=== PATIENT | female | born 1950 | race Two or more races ===

== ENCOUNTER 2018-04-17 15:46 | Inpatient (IN) | payer MEDICARE ==
[~2018-04-17] VITALS: Ht 157.5 cm; Wt 63.5 kg
[2018-04-17] MEDS ORDERED: IV NS 0.9% 1,000 ML BAG IV ONE ×2 (16:00→18:00)
--- NOTE | 2018-04-17 16:06 | NUR ---
LAB AT BEDSIDE FOR BLOOD DRAW.
--- NOTE | 2018-04-17 16:10 | NUR ---
ALLYN STEVE RA FOR GENERALIZED WEAKNESS. SECONDARY TO TACHCARDIA. RA STATES HYPOGLYCEMIA SOCK AND STOCKING IRONER. NO S/S SOB. PT AA/OX1. FAMILY MEMBER STATES, "HER WEAKNESS AND MENTAL STATE HAS BEEN LIKE THIS FOR A WEEK AND GRADUALLY GETTING WORSE, SHE HAS NOT BEEN ABLE TO SPEAK SINCE THEN." ALL OTHER VSS. AWAITING MD MCKEE.
[2018-04-17 16:19] LABS: BASOPHILS % (AUTO) 0.1 % (0.0-2.0); EOSINOPHILS % (AUTO) 0.2 % (0.0-6.0); HEMATOCRIT 34 % (33-45); HEMOGLOBIN 11.5 g/dL (11.5-14.8); LYMPHOCYTES # (AUTO) 1.4 /CMM (0.8-4.8); LYMPHOCYTES % (AUTO) 4.4 % (20.0-44.0); MEAN CORPUSCULAR HEMOGLOBIN 28 PG (26.0-33.0); MEAN CORPUSCULAR HGB CONC 34 g/dl (31.0-36.0); MEAN CORPUSCULAR VOLUME 82 fL (82-100); MONOCYTES # (AUTO) 1.2 /CMM (0.1-1.30); MONOCYTES % (AUTO) 3.7 % (2.0-12.0); NEUTROPHILS # (AUTO) 28.8 /CMM (1.8-8.9); NEUTROPHILS % (AUTO) 91.6 % (43.0-81.0); PLATELET COUNT (AUTO) 408 /CMM (150-450); RED BLOOD CELL COUNT(AUTO) 4.09 MIL/uL (4.0-5.2)
--- NOTE | 2018-04-17 16:24 | NUR ---
WBC 31.5
[2018-04-17] MEDS ORDERED: BUPR300T52 PO (16:25)
[2018-04-17] MEDS ORDERED: INSU100V3 SQ (16:25)
[2018-04-17] MEDS ORDERED: FOLI0.8T2 PO (16:25)
[2018-04-17] MEDS ORDERED: CHOL100044 PO (16:25)
[2018-04-17] MEDS ORDERED: AMLO5TAB4 PO (16:25)
[2018-04-17] MEDS ORDERED: GLIP5TAB3 PO (16:25)
[2018-04-17] MEDS ORDERED: ARIP5TAB10 PO (16:25)
[2018-04-17] MEDS ORDERED: ATOR40TA PO (16:25)
[2018-04-17] MEDS ORDERED: GABA-532 PO (16:25)
[2018-04-17] MEDS ORDERED: ACET-868 PO (16:25)
[2018-04-17] MEDS ORDERED: BLOO-668 IN (16:25)
[2018-04-17] MEDS ORDERED: ONDA4TAB5 PO (16:25)
[2018-04-17 16:26] LABS: WHITE BLOOD COUNT (AUTO) 31.5 K/uL (4.3-11.0)
[2018-04-17 16:28] LABS: CALCIUM, SERUM 8.6 mg/dL (8.5-10.1); CARBON DIOXIDE 19 mmol/L (21-32); CHLORIDE 98 mmol/L (98-107); CREATININE 4.9 mg/dL (0.6-1.3); GLUCOSE 215 mg/dL (74-106); SODIUM SERUM 131 mmol/L (136-145); UREA NITROGEN, BLOOD 68 mg/dL (7-18)
[2018-04-17 16:35] LABS: TROPONIN I < 0.017 ng/mL (0.00-0.056)
[2018-04-17 16:36] LABS: ALANINE AMINOTRANSFERASE 24 U/L (12-78); ALBUMIN 2.6 g/dL (3.4-5.0); ALKALINE PHOSPHATASE 206 U/L (46-116); ASPARTATE AMINOTRANSFERASE 35 U/L (15-37); BILIRUBIN,DIRECT 0.1 mg/dL (0.0-0.2); BILIRUBIN,TOTAL 0.3 mg/dL (0.2-1.0); INR 0.99 (0.85-1.15); TOTAL PROTEIN, SERUM 8.8 g/dL (6.4-8.2)
[2018-04-17 17:28] LABS: APPEARANCE,URINE Clear (CLEAR); BILIRUBIN,URINE Negative (NEGATIVE); BLOOD, URINE Trace-lysed Ery/uL (NEGATIVE); COLOR,URINE Yellow (YELLOW); KETONES,URINE Negative (NEGATIVE); LEUKOCYTE ESTERASE ,URINE Moderate (NEGATIVE); NITRITE, URINE Negative (NEGATIVE); PROTEIN,URINE 100 mg/dl (NEGATIVE); UGLUCOSE Negative (NEGATIVE); UROBILINOGEN,URINE 0.2 EU/dL (0.2)
[2018-04-17 17:41] LABS: BACTERIA,URINE 1+ /HPF (None Seen); RBC,URINE 0-2 /HPF (0-2); SQUAMOUS EPITHELIAL CELL,UR Few /HPF (None Seen)
[2018-04-17] MEDS ORDERED: CEFTRIAXONE 1GM BAG (ER ONLY) 50 ML IV ONE (18:00)
[2018-04-17] MEDS ORDERED: AZITHROMYCIN 500 MG in IV D5W 250 ML IV ONE (18:00)
[2018-04-17] MEDS ORDERED: VANCOMYCIN 1 GM in IV D5W 250 ML IV ONE (18:00)
[2018-04-17] MEDS ORDERED: CEFTRIAXONE 1 G VIAL ONE (18:13)
[2018-04-17 18:59] LABS: BAND % (MANUAL) 5 % (0.0-5.0); LYMPHOCYTES % (MANUAL) 15 % (16-48); MONOCYTES % (MANUAL) 11 % (0-11.0); NEUTROPHILS % (MANUAL) 69 (42-76)
--- NOTE | 2018-04-17 19:40 | NUR ---
REPORT GIVEN TO DION JACKSON FOR CARMEN
[2018-04-17 20:00] VITALS: BP 108/49
--- NOTE | 2018-04-17 20:00 | NUR ---
REAM CUTTER NOTES RECEIVE PT FROM [facility] ADMIT TO TELEMETRY AT 1935 PT IS LAO SPEAKING ONLY A/O X 1 CONFUSED, TOLERATING ROOM AIR 98% KEPT CLEAN AND DRY AND COMFORT. NURSING CARE RENDERED. HEAD TO TOE ASSESSMENT IS DONE. SAFETY MEASURES IMPLEMENTED. CALL LIGHT WITHIN EASY TO REACH. WILL MONITOR
[2018-04-17] MEDS ORDERED: IV NS 0.9% 1,000 ML IV PRN (20:58)
[2018-04-17] MEDS ORDERED: ACETAMINOPHEN 325 MG TABLET PO PRN (21:00)
[2018-04-17] MEDS ORDERED: VANCOMYCIN 1 GM in IV NS 0.9% 250 ML IV SCH (21:00)
[2018-04-17] MEDS ORDERED: ONDANSETRON HCL/PF 4 MG/2 ML VIAL IVP PRN (21:00)
[2018-04-17] MEDS ORDERED: DEXTROSE 50%-WATER 50 ML DISP.SYRIN IV PRN (21:00)
[2018-04-17] MEDS: BLOOD SUGAR DIAGNOSTIC 1 EACH STRIP IN SCH (21:34)
[2018-04-17] MEDS: ATORVASTATIN 40 MG TABLET PO SCH (21:40)
[2018-04-17] MEDS: INSULIN REGULAR, HUMAN 100 UNIT/ML 3 ML VIAL SQ PRN (21:49)
[2018-04-17] MEDS: HYDROCODONE/APAP 5/325MG 1 EACH TABLET PO PRN (23:12)
[2018-04-18] VITALS: BP_SYST 172; BP_SYST 99; BP_DIAS 46; BP_DIAS 78
--- NOTE | 2018-04-18 01:15 | NUR ---
SEEN BY DR. AGUSTIN DE LA TORRE AT BEDSIDE RECEIVED VERBAL ORDERS INSERT PANTOJA TO MONITOR URINE OUTPUT AND CHANGE IVF TO D5NS AT 100C/HR D/C NS AT 100ML/HR READ BACK AND VERIFIED ORDERS NOTED AND CARRIED OUT
--- NOTE | 2018-04-18 01:30 | NUR ---
INSERTED PANTOJA CATH 16FR. + URINE FLOW TOLERATED PROCEDURE WELL. GOOD F/C CARE
[2018-04-18] MEDS: IV D5/ 0.9% NACL 1,000 ML IV PRN ×2 (01:34→21:53)
[2018-04-18 04:00] VITALS: BP 104/51
[2018-04-18] MEDS: BLOOD SUGAR DIAGNOSTIC 1 EACH STRIP IN SCH ×4 (05:51→22:28)
[2018-04-18] MEDS: INSULIN REGULAR, HUMAN 100 UNIT/ML 3 ML VIAL SQ PRN ×2 (05:51→13:18)
--- NOTE | 2018-04-18 06:24 | NUR ---
MS RN CLOSING NOTES PT COMFORTABLY ASLEEP AND EASILY AWAKEN, STABLE CONDITION. RESPIRATION EVEN AND UNLABORED. 02 SAT 94%R.A, KEPT CLEAN AND DRY AND COMFORTABLE, ALL NURSING CARE RENDERED. NEEDS ATTENDED AND ANTICIPATED,NOT IN DISTRESS NO FACIAL GRIMACING NOTED. GOOD F/C CARE, FC DRAINING YELLOW VIA GRAVITY WITH NO SEDIMENTS NO HEMATURIA NO CLOUDINESS. ASSISTED REPOSITION EVERY 2 HOURS. ON LOW BED AT ALL TIMES TO ENSURE SAFETY. SAFE HAZARD FREE ENVIRONMENT PROVIDED. CALL LIGHT WITHIN EASY TO REACH. WILL ENDORSE NEXT SHIFT CONTINUITY OF CARE.
[2018-04-18 08:00] VITALS: BP 114/62
--- NOTE | 2018-04-18 08:00 | NUR ---
RN NOTES RECEIVED PATIENT IN THE BED , A/O X1 CONFUSED, DELUSIONAL, TRYING TO PULL F/C. PATIENT HAS NO ACUTE RESPIRATORY DISTRESS. V/S STABLE, SCHEDULED MEDICATION ADMINISTERED, ASSIST EATING. NEEDS ATTENDED AND ANTICIPATED, IV ACCESS ON RIGHT F/A INFUSING D51/2 NS AT 100 ML/HR INTACT. BED ALLARM ON, SIDE RAILS UP, PATIENT TRYING TO CLIME OUT OF BED. CALL [facility] TO REACH. SAFETY PRECAUTION MAINTAINED ALL THE TIME.
[2018-04-18] MEDS ORDERED: VANCOMYCIN 1 GM in IV NS 0.9% 250 ML IV SCH ×2 (08:04→18:00)
[2018-04-18] MEDS ORDERED: FEE PK DOSING 1 MIN EA MC ONE (08:05)
[2018-04-18] MEDS: BUPROPION XL 150 MG TAB.ER.24 PO SCH (08:16)
[2018-04-18] MEDS: PANTOPRAZOLE 40 MG TABLET.DR PO SCH (08:16)
[2018-04-18] MEDS: ARIPIPRAZOLE 5 MG TABLET PO SCH (08:17)
[2018-04-18] MEDS: GABAPENTIN 300 MG CAPSULE PO SCH (08:17)
[2018-04-18] MEDS: PIPERACILLIN /TAZOBACTAM 2.25 G in IV NS 0.9% 50 ML IV SCH ×2 (08:18→17:25)
[2018-04-18] MEDS ORDERED: PIPERACILLIN /TAZOBACTAM 2.25 G in IV NS 0.9% 50 ML IV SCH (09:00)
--- NOTE | 2018-04-18 09:00 | NUR ---
RN NOTES D/C TELE TO THE MED/SURGE.
[2018-04-18 10:04] LABS: CALCIUM, SERUM 8.1 mg/dL (8.5-10.1); CREATININE 4.2 mg/dL (0.6-1.3); POTASSIUM 3.7 mmol/L (3.5-5.1)
[2018-04-18 10:08] LABS: MAGNESIUM 2.1 mg/dL (1.8-2.4); PHOSPHORUS 4.3 mg/dL (2.5-4.9)
--- NOTE | 2018-04-18 13:04 | NUR ---
RN NOTES BS-273 MG/DL COVERAGE GIVEN, PATIENT CONFUSED, DELUSIONAL, F/C DRAIN LIGHT YELLOW OUTPUT, V/S STABLE, NEEDS ATTENDED AND ANTICIPATED. CALL LIGHT WITHIN TO REACH, FAMILY NEXT TO THE BED, CONTINUED MONITORING.
[2018-04-18 15:44] LABS: BASOPHILS # (AUTO) 0.1 /CMM (0.0-0.2); BASOPHILS % (AUTO) 0.2 % (0.0-2.0); EOSINOPHILS % (AUTO) 1.8 % (0.0-6.0); HEMATOCRIT 27 % (33-45); HEMOGLOBIN 8.5 g/dL (11.5-14.8); LYMPHOCYTES # (AUTO) 2.8 /CMM (0.8-4.8); LYMPHOCYTES % (AUTO) 10.7 % (20.0-44.0); MEAN CORPUSCULAR HEMOGLOBIN 27 PG (26.0-33.0); MEAN CORPUSCULAR HGB CONC 32 g/dl (31.0-36.0); MEAN CORPUSCULAR VOLUME 85 fL (82-100); MONOCYTES # (AUTO) 0.9 /CMM (0.1-1.30); MONOCYTES % (AUTO) 3.6 % (2.0-12.0); NEUTROPHILS # (AUTO) 21.5 /CMM (1.8-8.9); NEUTROPHILS % (AUTO) 83.7 % (43.0-81.0); PLATELET COUNT (AUTO) 339 /CMM (150-450); RDW COEFFICIENT OF VARIATION 16.5 (11.5-15.0); RED BLOOD CELL COUNT(AUTO) 3.13 MIL/uL (4.0-5.2); WHITE BLOOD COUNT (AUTO) 25.7 K/uL (4.3-11.0)
[2018-04-18 16:13] VITALS: BP 128/66
[2018-04-18 16:27] LABS: LYMPHOCYTES % (MANUAL) 6 % (16-48); MONOCYTES % (MANUAL) 11 % (0-11.0); NEUTROPHILS % (MANUAL) 83 (42-76)
--- NOTE | 2018-04-18 17:25 | NUR ---
RN NOTES BS-73 MG/DL, NO COVERAGE GIVEN, SCHEDULED MEDICATION ADMINISTERED, V/S STABLE. ASSIST TURN AND REPOSTION Q 2 HR. F/C DRAIN LIGHT YELLOW OUTPUT, NEEDS ATTENDED AND ANTICIPATED, CALL LIGHT WITHIN TO REACH, BED ALARM ON, CONTINUED MONITORING FOR SAFETY ALL THE TIME.
--- NOTE | 2018-04-18 18:30 | NUR ---
RN NOTES PATIENT CONFUSED, NO ACUTE RESPIRATORY DISTRESS, V/S STABLE. ASSIST TURN AND REPOSTION Q 2 HR. CALL LIGHT WITHIN TO REACH, BED ALARM ON. F/C DRAIN LIGHT YELLOW OUTPUT. ENDORSED ONCOMING NURSE FOR PLAN OF CARE.
--- NOTE | 2018-04-18 19:20 | NUR ---
MS RN NOTES Report received. Patient received in bed, awake, alertx1 to self only (japanese speaking). Have episodes of confusion. Elevated BUN and creat: per nephrology (pharm notes), HD is not indicated at this time. serum creat is trending down. Continue on ATB therapy. Risk for fall. IV on right forearm 18g noted. with D5NS @100ml/hr, tolerating well. On Renal standard diet. Safety measures in place. Will continue to monitor and assess patient
[2018-04-18 20:04] VITALS: BP 132/87
[2018-04-18] MEDS: ATORVASTATIN 40 MG TABLET PO SCH (21:45)
[2018-04-19] MEDS: PIPERACILLIN /TAZOBACTAM 2.25 G in IV NS 0.9% 50 ML IV SCH ×2 (00:56→11:10)
[2018-04-19 01:12] LABS: THYROID STIMULATING HORMONE 0.979 uIU/mL (0.358-3.74)
--- NOTE | 2018-04-19 01:15 | NUR ---
MS RN NOTES Patient remained awake, restless. Continue to re-orient patient and monitor patient to prevent from pulling abarca cath and IV.
[2018-04-19] MEDS: Z GUARD REMEDY 2 OZ OINT TP PRN (01:47)
--- NOTE | 2018-04-19 03:39 | NUR ---
MS RN NOTES Noted patient to be awake and talking to herself while playing with sleeve protector that was placed on right arm to prevent from pulling out IV. Reoriented and reminded patient not to touch the sleeve. Safety measures in place. Will continue to monitor patient
[2018-04-19] MEDS: BLOOD SUGAR DIAGNOSTIC 1 EACH STRIP IN SCH ×4 (07:15→22:07)
--- NOTE | 2018-04-19 07:15 | NUR ---
MS OPENING NOTE PT IS A&O X1, CONFUSED, IN BED, AWAKE. ALL FOUR SIDE RAILS UP. NO IV ACCESS CURRENTLY WILL INSERT.IN SOB, NOT IN DISTRESS, ON ROOM AIR. WILL CONTINUE TO MONITOR PT.
--- NOTE | 2018-04-19 07:20 | NUR ---
MS RN CLOSING NOTES Patient remained in bed, awake throughout the shift. Not in any type of distress. On antibiotic therapy, tolerating well. Noted IV line pulled out, asked BRUSH FINISHER, and BRUSH FINISHER just informed me that she was looking for me to inform me that patient pulled out her IV. ID consult and plan for renal work up. AM labs. BS: 101//no coverage. Endorsed to oncoming shift nurse. Safety measures in place. Bed in lowest position with bed alarm on and call light within reach.
[2018-04-19 08:00] VITALS: BP_SYST 109; BP_SYST 116; BP_DIAS 44; BP_DIAS 71
[2018-04-19] MEDS: ARIPIPRAZOLE 5 MG TABLET PO SCH (08:30)
[2018-04-19] MEDS: BUPROPION XL 150 MG TAB.ER.24 PO SCH (08:30)
[2018-04-19] MEDS: PANTOPRAZOLE 40 MG TABLET.DR PO SCH (08:30)
[2018-04-19] MEDS: GABAPENTIN 300 MG CAPSULE PO SCH (08:30)
[2018-04-19] MEDS: INSULIN REGULAR, HUMAN 100 UNIT/ML 3 ML VIAL SQ PRN ×3 (12:27→22:51)
[2018-04-19] MEDS: MEROPENEM 500 MG in IV NS 0.9% 50 ML IV SCH (15:11)
[2018-04-19 16:00] VITALS: BP 126/71
[2018-04-19] MEDS ORDERED: VANCOMYCIN 1 GM in IV NS 0.9% 250 ML IV SCH (16:00)
[2018-04-19 16:15] LABS: BASOPHILS % (AUTO) 0.1 % (0.0-2.0); EOSINOPHILS % (AUTO) 1.3 % (0.0-6.0); HEMATOCRIT 28 % (33-45); HEMOGLOBIN 8.9 g/dL (11.5-14.8); LYMPHOCYTES # (AUTO) 2.4 /CMM (0.8-4.8); LYMPHOCYTES % (AUTO) 9.5 % (20.0-44.0); MEAN CORPUSCULAR HEMOGLOBIN 27 PG (26.0-33.0); MEAN CORPUSCULAR HGB CONC 31 g/dl (31.0-36.0); MEAN CORPUSCULAR VOLUME 86 fL (82-100); MONOCYTES # (AUTO) 1.5 /CMM (0.1-1.30); MONOCYTES % (AUTO) 6.1 % (2.0-12.0); NEUTROPHILS # (AUTO) 20.8 /CMM (1.8-8.9); PLATELET COUNT (AUTO) 379 /CMM (150-450); RDW COEFFICIENT OF VARIATION 16.6 (11.5-15.0); RED BLOOD CELL COUNT(AUTO) 3.32 MIL/uL (4.0-5.2); WHITE BLOOD COUNT (AUTO) 25.1 K/uL (4.3-11.0)
[2018-04-19 16:22] LABS: CREATININE 3.9 mg/dL (0.6-1.3); MAGNESIUM 1.9 mg/dL (1.8-2.4); PHOSPHORUS 3.4 mg/dL (2.5-4.9); POTASSIUM 3.1 mmol/L (3.5-5.1)
[2018-04-19] MEDS: LACTOBACILLUS RHAMNOSUS GG 1 EACH CAP.SPRINK PO SCH (16:44)
[2018-04-19 17:37] LABS: LYMPHOCYTES % (MANUAL) 13 % (16-48); MONOCYTES % (MANUAL) 2 % (0-11.0); NEUTROPHILS % (MANUAL) 85 (42-76)
[2018-04-19] MEDS: HYDROCODONE/APAP 5/325MG 1 EACH TABLET PO PRN (17:46)
[2018-04-19] MEDS ORDERED: POTASSIUM CHLORIDE 20 MEQ TAB.PRT.SR PO ONE (19:00)
--- NOTE | 2018-04-19 19:10 | NUR ---
ms rn closing notes All needs provided, attended, and anticipated. Patient in stable condition at this time. Endorsed to next shift RN to continue care. Call light with in patient reach. Sitter at bedside for constant monitoring.
--- NOTE | 2018-04-19 19:13 | NUR ---
MS RN NOTES Report received at bedside. Patient received in bed, awake, alertx1 to self only (albanian speaking). On contact isolation for urine ESBL. On one-on-one sitter d/t confusion, combativeness, restlessness and disturbance in care. Potassium replaced per endorsement. serum creat and BUN continues to trend down. Continue on ATB therapy. Risk for fall. IV on LAC noted with D5NS @100ml/hr, tolerating well. On Renal standard diet. Aspiration precaution. Safety measures in place. Will continue to monitor and assess patient
[2018-04-19 20:00] VITALS: BP 134/75
[2018-04-19] MEDS: ATORVASTATIN 40 MG TABLET PO SCH (22:07)
[2018-04-20] MEDS: IV D5/ 0.9% NACL 1,000 ML IV PRN (00:19)
[2018-04-20] MEDS: MEROPENEM 500 MG in IV NS 0.9% 50 ML IV SCH ×2 (02:19→15:23)
--- NOTE | 2018-04-20 06:56 | NUR ---
MS RN CLOSING NOTES Patient remained in bed, asleep, easily arousable. alertx1 to self only (israeli speaking). Remained on contact isolation for urine ESBL. Continue with one-on-one sitter d/t confusion, combativeness, restlessness and interference in care. Potassium replaced 04/19 AM shift. serum creat and BUN continues to trend down. Continue on ATB therapy. Risk for fall. IV on LAC #18g: patent and intact with D5NS @100ml/hr, tolerating well. On Renal standard diet. Aspiration precaution. Bed in lowest position with bed alarm on and call light within reach. BS: 149. 2 units coverage. Will endorse to oncoming shift nurse
[2018-04-20] MEDS: BLOOD SUGAR DIAGNOSTIC 1 EACH STRIP IN SCH ×4 (07:00→22:12)
[2018-04-20 07:11] LABS: EOSINOPHILS % (AUTO) 1.2 % (0.0-6.0); HEMATOCRIT 30 % (33-45); HEMOGLOBIN 9.6 g/dL (11.5-14.8); LYMPHOCYTES # (AUTO) 2.2 /CMM (0.8-4.8); LYMPHOCYTES % (AUTO) 8.8 % (20.0-44.0); MEAN CORPUSCULAR HEMOGLOBIN 28 PG (26.0-33.0); MEAN CORPUSCULAR HGB CONC 33 g/dl (31.0-36.0); MEAN CORPUSCULAR VOLUME 86 fL (82-100); MONOCYTES # (AUTO) 1.5 /CMM (0.1-1.30); MONOCYTES % (AUTO) 5.8 % (2.0-12.0); NEUTROPHILS # (AUTO) 21.4 /CMM (1.8-8.9); NEUTROPHILS % (AUTO) 84.2 % (43.0-81.0); PLATELET COUNT (AUTO) 361 /CMM (150-450); RDW COEFFICIENT OF VARIATION 16.9 (11.5-15.0); RED BLOOD CELL COUNT(AUTO) 3.47 MIL/uL (4.0-5.2); WHITE BLOOD COUNT (AUTO) 25.4 K/uL (4.3-11.0)
[2018-04-20 07:20] LABS: CALCIUM, SERUM 8.3 mg/dL (8.5-10.1); CREATININE 3.8 mg/dL (0.6-1.3); MAGNESIUM 1.8 mg/dL (1.8-2.4); PHOSPHORUS 3.1 mg/dL (2.5-4.9); POTASSIUM 3.5 mmol/L (3.5-5.1)
--- NOTE | 2018-04-20 07:38 | NUR ---
MS RN OPENING NOTE RECEIVED BEDSIDE SBAR REPORT ON THE PATIENT. PATIENT IS AWAKE, ORIENTED TO SELF, CONFUSED, EASILY AGITATED, ALGERIAN SPEAKING ONLY. SITTER AT THE BEDSIDE. CONTACT ISOLATION IN PLACE FOR ESBL URINE. AWAKE AND RESPONSIVE IN BED. BED IS LOCKED IN LOWEST POSITION, SIDE RAILS UP X3, BED ALARM IS ON. CALL LIGHT WITHIN REACH. EDUCATED PATIENT TO CALL FOR ASSISTANCE USING THE CALL LIGHT. DENIES PAIN AT THIS TIME. CHEST RISING EQUALLY, BILATERALLY. ALL NEEDS ARE MET. WILL CONTINUE TO ASSES/MONITOR THROUGHOUT THE SHIFT.
[2018-04-20 08:00] VITALS: BP_SYST 132; BP_SYST 145; BP_DIAS 64; BP_DIAS 68
[2018-04-20] MEDS: ARIPIPRAZOLE 5 MG TABLET PO SCH (08:37)
[2018-04-20] MEDS: BUPROPION XL 150 MG TAB.ER.24 PO SCH (08:37)
[2018-04-20] MEDS: LACTOBACILLUS RHAMNOSUS GG 1 EACH CAP.SPRINK PO SCH ×2 (08:38→16:24)
[2018-04-20] MEDS: GABAPENTIN 300 MG CAPSULE PO SCH (08:38)
[2018-04-20] MEDS: PANTOPRAZOLE 40 MG TABLET.DR PO SCH (08:39)
[2018-04-20] MEDS: INSULIN REGULAR, HUMAN 100 UNIT/ML 3 ML VIAL SQ PRN (12:49)
[2018-04-20 16:00] VITALS: BP 127/53
--- NOTE | 2018-04-20 18:57 | NUR ---
MS RN CLOSING NOTE PATIENT IS AWAKE, ORIENTED TO SELF, CONFUSED, EASILY AGITATED, FRISIAN SPEAKING ONLY. SITTER AT THE BEDSIDE. CONTACT ISOLATION IN PLACE FOR ESBL URINE. AWAKE AND RESPONSIVE IN BED. BED IS LOCKED IN LOWEST POSITION, SIDE RAILS UP X3, BED ALARM IS ON. CALL LIGHT WITHIN REACH. EDUCATED PATIENT TO CALL FOR ASSISTANCE USING THE CALL LIGHT. DENIES PAIN AT THIS TIME. CHEST RISING EQUALLY, BILATERALLY. ALL NEEDS ARE MET. PATIENT REPOSITIONED EVERY TWO HOURS WHILE MAINTAINING THE FUNCTIONAL ALIGNMENT OF THE LIMBS. WILL ENDORSE TO THE TIEDOWN OPERATOR NURSE FOR CARMEN.
--- NOTE | 2018-04-20 19:47 | NUR ---
MS PATIENT SAFETY ATTENDANT INITIAL NOTES RECEIVED PT IN BED AWAKE AND CONFUSED, RE-ORIENTED WHERE SHE AT , URDU SPEAKING NO SIGNS OF ANY ACUTE DISTRESS NOTED. DENIES ANY PAIN AT THIS TIME. SON AT THE BEDSIDE. SKIN WARM AND DRY TO TOUCH. IVF STILL INFUSING ON HER LEFT AC D5NS AT 100ML/HR COVERED WITH ARM SLEEVES TO PREVENT PT TO PULLED OUT. ON ISOLATION PRECAUTION ESBL URINE IMPLEMENTED AND OBSERVED. KEPT HIM COMFORTABLE AT ALL TIMES. PANTOJA TO GRAVITY WITH CLEAR YELLOW OUTPUT NOTED. CLOSELY MONITORING FOR PT SAFETY.
[2018-04-20 19:51] VITALS: BP 135/65
[2018-04-20] MEDS: ATORVASTATIN 40 MG TABLET PO SCH (22:11)
[2018-04-20] MEDS: HYDROCODONE/APAP 5/325MG 1 EACH TABLET PO PRN (22:12)
--- NOTE | 2018-04-20 22:16 | NUR ---
MS MACHINE STONECUTTER NOTES BLOOD SUGAR CHECKED DONE 92 , NO INSULIN COVERAGE DUE AT THIS TIME. NO SIGNS OF HYPO GLYCEMIA NOTED. ROUTINE MEDS GIVEN WELL HER PAIN MEDS AND TOLERATED WELL BY THE PATIENT. NO ASPIRATION NOTED . KEPT HER WARM AND COMFORTABLE AT ALL TIMES. WILL CONTINUE MONITORING.
--- NOTE | 2018-04-21 | NUR ---
FOOT MITER OPERATOR NOTES PT SLEEPING COMFORTABLY IN BED WITHOUT ANY ACUTE DISTRESS NOTED. IVF STILL INFUSING. KEPT HER WARM AND COMFORTABLE AT ALL TIMES. WILL CONTINUE MONITORING.
[2018-04-21] MEDS: MEROPENEM 500 MG in IV NS 0.9% 50 ML IV SCH ×2 (03:25→15:33)
--- NOTE | 2018-04-21 06:17 | NUR ---
MS ISHMAEL NOTES PT WOKE UP , NO SIGNS OF ANY DISCOMFORT NOTED. SPONGE BATH RENDERED WELL SKIN TREATMENT. REPOSITION HER FOR COMFORT. WILL CONTINUE MONITORING.
[2018-04-21] MEDS: IV D5/ 0.9% NACL 1,000 ML IV PRN ×2 (06:24→21:06)
[2018-04-21] MEDS: BLOOD SUGAR DIAGNOSTIC 1 EACH STRIP IN SCH ×4 (07:01→21:06)
--- NOTE | 2018-04-21 07:03 | NUR ---
MS BUS DRIVER/MONITOR CLOSING NOTES PT BACK TO REST AFTER MORNING CARE DONE, BREATHING EVEN AND NON-LABORED NOT IN ANY DISCOMFORT OR ANY ACUTE DISTRESS NOTED. STABLE QASIM THE NIGHT AND SLEPT WELL AFTER NORCO GIVEN . ALL DUE MEDS GIVEN AND ALL NEEDS MET. IVF D5NS AT 100ML/HR STILL INFUSING ON HER LEFT AC PATENT AND INTACT. PANTOJA DRAINING WELL . KEPT HER WARM AND COMFORTABLE AT ALL TIMES. SIDE RAILS X3 UP AND BED IN LOW AND LOCK IN POSITION. SITTER AT THE BEDSIDE. ENDORSE TO AM NURSE FOR CONTINUITY OF CARE.
--- NOTE | 2018-04-21 07:49 | NUR ---
RN OPENING NOTES RECEIVED PT. PT STABLE AND RESTING IN BED. A/OX1, PRIMARILY ENGLISH SPEAKING, PT IS CONFUSED AND AGITATED. 1:1 SITTER AT BEDSIDE. CONTACT PRECAUTIONS IN PLACE. FC PATENT, IN PLACE. IV ACCESS LOCATED ON LAC 18G INFUSING D5NS AT 100 ML/HR. SAFETY MEASURES IN PLACE, CALL LIGHT WITHIN REACH. WILL CONTINUE TO MONITOR.
[2018-04-21 07:53] LABS: BASOPHILS % (AUTO) 0.1 % (0.0-2.0); HEMATOCRIT 30 % (33-45); HEMOGLOBIN 9.5 g/dL (11.5-14.8); LYMPHOCYTES # (AUTO) 3.6 /CMM (0.8-4.8); LYMPHOCYTES % (AUTO) 15.5 % (20.0-44.0); MEAN CORPUSCULAR HEMOGLOBIN 28 PG (26.0-33.0); MEAN CORPUSCULAR HGB CONC 32 g/dl (31.0-36.0); MEAN CORPUSCULAR VOLUME 87 fL (82-100); MONOCYTES # (AUTO) 1.4 /CMM (0.1-1.30); MONOCYTES % (AUTO) 5.8 % (2.0-12.0); NEUTROPHILS # (AUTO) 17.9 /CMM (1.8-8.9); NEUTROPHILS % (AUTO) 76.6 % (43.0-81.0); PLATELET COUNT (AUTO) 398 /CMM (150-450); RDW COEFFICIENT OF VARIATION 16.5 (11.5-15.0); RED BLOOD CELL COUNT(AUTO) 3.43 MIL/uL (4.0-5.2); WHITE BLOOD COUNT (AUTO) 23.4 K/uL (4.3-11.0)
[2018-04-21 08:00] VITALS: BP 132/69
[2018-04-21 08:13] LABS: CALCIUM, SERUM 8.4 mg/dL (8.5-10.1); CREATININE 3.6 mg/dL (0.6-1.3); MAGNESIUM 1.7 mg/dL (1.8-2.4); PHOSPHORUS 3.2 mg/dL (2.5-4.9); POTASSIUM 3.3 mmol/L (3.5-5.1)
[2018-04-21] MEDS: PANTOPRAZOLE 40 MG TABLET.DR PO SCH (08:17)
[2018-04-21] MEDS: ARIPIPRAZOLE 5 MG TABLET PO SCH (08:18)
[2018-04-21] MEDS: BUPROPION XL 150 MG TAB.ER.24 PO SCH (08:18)
[2018-04-21] MEDS: LACTOBACILLUS RHAMNOSUS GG 1 EACH CAP.SPRINK PO SCH ×2 (08:18→17:41)
[2018-04-21] MEDS: GABAPENTIN 300 MG CAPSULE PO SCH (08:18)
[2018-04-21] MEDS ORDERED: POTASSIUM CHLORIDE 20 MEQ TAB.PRT.SR PO ONE (10:30)
[2018-04-21] MEDS: Magnesium 1GM/D5W 100ML PREMIX 100 ML IV SCH ×2 (10:53→12:13)
[2018-04-21] MEDS: VANCOMYCIN 0.75 GM in IV D5W 250 ML IV SCH (12:10)
[2018-04-21] MEDS: INSULIN REGULAR, HUMAN 100 UNIT/ML 3 ML VIAL SQ PRN ×3 (12:11→21:16)
[2018-04-21 16:00] VITALS: BP 136/75
--- NOTE | 2018-04-21 18:39 | NUR ---
RN CLOSING NOTES PT IN BED RESTING, FAMILY AT BEDSIDE. NO S/S OF RESP DISTRESS OR SOB. NO C/O PAIN AT THIS TIME. PT REMAINS NON-COMPLIANT WITH THERAPIES AND SOME TREATMENTS, ALTHOUGH PRESENCE OF FAMILY ASSISTS IN OBTAINING PT CONSENT. ALL PT NEEDS ANTICIPATED AND MET, SAFETY MEASURES IN PLACE, CALL LIGHT WITHIN REACH. WILL ENDORSE TO MENTAL TESTER FOR CARMEN.
--- NOTE | 2018-04-21 19:24 | NUR ---
MS RN OPENING NOTE RECEIVE PATIENT AWAKE IN BED, A/O X1, SLOVAK SPEAKING CONFUSED, NO C/O OF PAIN. NO SOB OR DISTRESS NOTED, CALL LIGHT WITHIN REACH. SAFETY MEASURES IMPLEMENTED. WILL CONTINUE TO MONITOR THROUGHOUT SHIFT.
[2018-04-21 20:00] VITALS: BP 132/75
[2018-04-21] MEDS: ATORVASTATIN 40 MG TABLET PO SCH (21:06)
[2018-04-22] MEDS: MEROPENEM 500 MG in IV NS 0.9% 50 ML IV SCH ×2 (02:30→15:53)
[2018-04-22] MEDS: BLOOD SUGAR DIAGNOSTIC 1 EACH STRIP IN SCH ×4 (06:01→21:23)
[2018-04-22] MEDS: INSULIN REGULAR, HUMAN 100 UNIT/ML 3 ML VIAL SQ PRN ×3 (06:01→21:28)
--- NOTE | 2018-04-22 06:13 | NUR ---
MS RN CLOSING NOTES PT COMFORTABLY ASLEEP AND EASILY AWAKEN, TOLERATING ROOM AIR 98% 1:1 SITTER, REPOSITION EVERY 2 HOURS. STABLE CONDITION. RESPIRATION EVEN AND UNLABORED. GOOD SKIN CARE PROVIDED. KEPT CLEAN AND DRY AND COMFORTABLE, ALL NURSING CARE RENDERED. NEEDS ATTENDED AND ANTICIPATED, NOT IN DISTRESS NO FACIAL GRIMACING NOTED. GOOD F/C CARE PROVIDED, FC DRAINING YELLOW VIA GRAVITY WITH NO SEDIMENTS NO HEMATURIA NO CLOUDINESS. ON LOW BED AT ALL TIMES TO ENSURE SAFETY. SAFE HAZARD FREE ENVIRONMENT PROVIDED. CALL LIGHT WITHIN EASY TO REACH. WILL ENDORSE NEXT SHIFT CONTINUITY OF CARE.
[2018-04-22 06:27] LABS: BASOPHILS % (AUTO) 0.2 % (0.0-2.0); EOSINOPHILS % (AUTO) 2.9 % (0.0-6.0); HEMATOCRIT 31 % (33-45); HEMOGLOBIN 9.9 g/dL (11.5-14.8); LYMPHOCYTES % (AUTO) 16.5 % (20.0-44.0); MEAN CORPUSCULAR HEMOGLOBIN 28 PG (26.0-33.0); MEAN CORPUSCULAR HGB CONC 32 g/dl (31.0-36.0); MEAN CORPUSCULAR VOLUME 86 fL (82-100); MONOCYTES # (AUTO) 1.3 /CMM (0.1-1.30); MONOCYTES % (AUTO) 7.2 % (2.0-12.0); NEUTROPHILS # (AUTO) 13.3 /CMM (1.8-8.9); NEUTROPHILS % (AUTO) 73.2 % (43.0-81.0); PLATELET COUNT (AUTO) 429 /CMM (150-450); RDW COEFFICIENT OF VARIATION 16.4 (11.5-15.0); RED BLOOD CELL COUNT(AUTO) 3.59 MIL/uL (4.0-5.2); WHITE BLOOD COUNT (AUTO) 18.1 K/uL (4.3-11.0)
[2018-04-22 06:45] LABS: CALCIUM, SERUM 8.4 mg/dL (8.5-10.1); CREATININE 3.1 mg/dL (0.6-1.3); POTASSIUM 3.3 mmol/L (3.5-5.1)
[2018-04-22 08:00] VITALS: BP 122/66
--- NOTE | 2018-04-22 08:00 | NUR ---
MS RN NOTES PATIENT IN BED RESTING WITH SITTER. NO SOB OR ACUTE DISTRESS NOTED. PATIENT ALERT, ORIENTED X2. PERIPHERAL IV INTACT PATENT . BED IN LOW LOCKED POSITION. WILL CONTINUE TO MONITOR.
[2018-04-22] MEDS: PANTOPRAZOLE 40 MG TABLET.DR PO SCH (08:46)
[2018-04-22] MEDS: LACTOBACILLUS RHAMNOSUS GG 1 EACH CAP.SPRINK PO SCH ×2 (08:55→17:15)
[2018-04-22] MEDS: GABAPENTIN 300 MG CAPSULE PO SCH (08:55)
[2018-04-22] MEDS: BUPROPION XL 150 MG TAB.ER.24 PO SCH (08:55)
[2018-04-22] MEDS: ARIPIPRAZOLE 5 MG TABLET PO SCH (08:55)
[2018-04-22] MEDS ORDERED: POTASSIUM CHLORIDE 20 MEQ TAB.PRT.SR PO ONE (09:00)
[2018-04-22] MEDS: IV D5/ 0.9% NACL 1,000 ML IV PRN ×2 (11:25→23:31)
[2018-04-22] MEDS: VANCOMYCIN 0.75 GM in IV D5W 250 ML IV SCH (11:25)
--- NOTE | 2018-04-22 18:43 | NUR ---
MS RN NOTES PATIENT IN BED RESTING NO SOB OR ACUTE DISTRESS NOTED. ALL DUE MEDICATIONS ADMINISTERED. ALL NEEDS MET. WILL ENDORSE TO PM SHIFT CARMEN.
--- NOTE | 2018-04-22 19:20 | NUR ---
rn initial notes: received report from charlie wilkes, pt in bed, awake, alert to self only, very confused, stated she would like to go down to visit her sister. Reorient pt. Per report pt been combative and trying to get out of bed, reason for having sitter. iv access on right hand g 22 patent and flushing well, infusing with d5ns at 100ml/hr. Hernandez catheter in placed draining into yellow colored urine. bed alarm secured. Safety precautions for fall initiated, call light in reach, will continue monitoring pt.
[2018-04-22 20:00] VITALS: BP 140/76
--- NOTE | 2018-04-22 20:00 | NUR ---
rn notes: pt's son came, now at bed side, discussed about plan of care for the pt, and give updates regarding pt condition.
[2018-04-22] MEDS: ATORVASTATIN 40 MG TABLET PO SCH (21:23)
--- NOTE | 2018-04-22 21:28 | NUR ---
accu heck 139: bs 139, 2units of insulin given per sliding scale, will monitor for any s/s of hypoglycemia.
--- NOTE | 2018-04-23 01:31 | NUR ---
rn notes: assited pt to bedside commode, pt had bm, soft, moderate
[2018-04-23] MEDS: MEROPENEM 500 MG in IV NS 0.9% 50 ML IV SCH ×2 (02:45→15:04)
[2018-04-23] MEDS: INSULIN REGULAR, HUMAN 100 UNIT/ML 3 ML VIAL SQ PRN ×2 (05:39→12:16)
[2018-04-23] MEDS: BLOOD SUGAR DIAGNOSTIC 1 EACH STRIP IN SCH ×2 (05:39→12:15)
--- NOTE | 2018-04-23 05:39 | NUR ---
ACCU CHECK 98: BS RESULT IS 98, NO INSULIN GIVEN PER SLIDING SCALE, PT ON D5NS IVF AT 100ML/HR, ON RENAL STANDARD DIET TOLERATING PO INTAKE, WILL MONITOR FOR ANY S/S OF HYPOGLYCEMIA
[2018-04-23] MEDS: Z GUARD REMEDY 2 OZ OINT TP PRN (05:43)
[2018-04-23 06:42] LABS: BASOPHILS # (AUTO) 0.1 /CMM (0.0-0.2); BASOPHILS % (AUTO) 0.3 % (0.0-2.0); EOSINOPHILS % (AUTO) 3.5 % (0.0-6.0); HEMATOCRIT 32 % (33-45); LYMPHOCYTES # (AUTO) 3.3 /CMM (0.8-4.8); LYMPHOCYTES % (AUTO) 19.3 % (20.0-44.0); MEAN CORPUSCULAR HEMOGLOBIN 28 PG (26.0-33.0); MEAN CORPUSCULAR HGB CONC 32 g/dl (31.0-36.0); MEAN CORPUSCULAR VOLUME 88 fL (82-100); MONOCYTES # (AUTO) 0.9 /CMM (0.1-1.30); MONOCYTES % (AUTO) 5.5 % (2.0-12.0); NEUTROPHILS # (AUTO) 12.3 /CMM (1.8-8.9); NEUTROPHILS % (AUTO) 71.4 % (43.0-81.0); PLATELET COUNT (AUTO) 300 /CMM (150-450); RDW COEFFICIENT OF VARIATION 16.5 (11.5-15.0); RED BLOOD CELL COUNT(AUTO) 3.61 MIL/uL (4.0-5.2); WHITE BLOOD COUNT (AUTO) 17.2 K/uL (4.3-11.0)
--- NOTE | 2018-04-23 06:51 | NUR ---
RN CLOSING NOTES: PT IN BED, AWAKE, REMAINS A/O X1-2 ON RA RESPIRATION EVEN AND UNLABORED, IV ACCESS REMAINS PATENT AND FLUSHING WELL, INFUSING WITH D5NS AT 100ML/HR. SITTER AT BED SIDE. PT CALM AND COOPERATIVE THROUGHOUT THE NIGHT WITH PERIODIC EPISODE OF TRYING TO GET OUT OF BED. VS REMAINS STABLE, NEEDS ATTENDED, REMAINS ON ASPIRATION PRECAUTIONS. SAFETY PRECAUTIONS FOR FALL REMAINS ENGAGED, CALL LIGHT IN REACH, WILL ENDORSE TO DAY RN FOR CARMEN.
[2018-04-23 07:06] LABS: CALCIUM, SERUM 8.6 mg/dL (8.5-10.1); CREATININE 2.9 mg/dL (0.6-1.3); MAGNESIUM 1.9 mg/dL (1.8-2.4); PHOSPHORUS 3.5 mg/dL (2.5-4.9); POTASSIUM 3.7 mmol/L (3.5-5.1)
--- NOTE | 2018-04-23 08:00 | NUR ---
MS RN NOTES PATIENT IN BED RESTING NO SOB OR ACUTE DISTRESS NOTED. PATIENT ALERT, ORIENTED X1. NEW IV INSERTED ON RIGHT HAND G22 WITH GOOD BLOOD RETURN. BED IN LOW LOCKED POSITION CALL LIGHT WITHIN REACH. PATIENT WITH SITTER FOR SAFETY. WILL CONTINUE TO MONITOR.
[2018-04-23] MEDS: GABAPENTIN 300 MG CAPSULE PO SCH (08:03)
[2018-04-23] MEDS: PANTOPRAZOLE 40 MG TABLET.DR PO SCH (08:03)
[2018-04-23] MEDS: LACTOBACILLUS RHAMNOSUS GG 1 EACH CAP.SPRINK PO SCH ×2 (08:03→16:22)
[2018-04-23] MEDS: ARIPIPRAZOLE 5 MG TABLET PO SCH (08:04)
[2018-04-23] MEDS: BUPROPION XL 150 MG TAB.ER.24 PO SCH (08:04)
--- NOTE | 2018-04-23 09:00 | NUR ---
MS RN NOTES PATIENT SEEN BY DR. SAHNI ORDERS TO REMOVE PANTOJA CATHETER AND DISCHARGE PATIENT ON IV ATB TO BE CONTINUED IN [facility].
[2018-04-23] MEDS ORDERED: VANCOMYCIN 500 MG in IV D5W 100 ML IV SCH (11:00)
--- NOTE | 2018-04-23 14:50 | NUR ---
MS RN NOTES PATIENT HAD MIDLINE INSERTED TOLERATED PROCEDURE WELL. INDICATION IV ATB FOR 14 DAYS AND MULTIPLE ATTEMPTS WERE MADE FOR PERIPHERAL IV. WILL CONTINUE TO MONITOR. REPOT GIVEN TO NEOL ASHLEY AT [facility]. ALL DISCHARGE INSTRUCTIONS PROVIDED. NOTIFIED OF CONTINUED IV ATB. PATIENTS SON MADE AWARE OF DISCHARGE. PATIENT WITH NO BELONGINGS. WAITING FOR TRANSPORTATION. WILL CONTINUE TO MONITOR.
--- NOTE | 2018-04-23 17:00 | NUR ---
MS RN NOTES PATIENT DISCHARGED TO [facility]. DISCHARGE INSTRUCTIONS PROVIDED TO RN AND PATIENTS SON. PATIENT IN STABLE CONDITION. MD AWARE OF ALL ABNORMAL LABS. PATIENT DISCHARGED VIA AMBULANCE WITH EMT. PATIENT WITH NO BELONGINGS. SKIN INTACT.
== END 2018-04-23 17:07 | DRG 871 ==
LOC: ER 15:53 → TELE 19:16 → MED 04-18 12:05
PROC: 05H533Z Insertion of Infusion Device into Right Subclavian Vein, Percutaneous Approach (ICD-10-PCS; principal; 2018-04-23)
PROC: B546ZZA Ultrasonography of Right Subclavian Vein, Guidance (ICD-10-PCS; 2018-04-23)
DX: A41.9 Sepsis, unspecified organism (principal); G93.41 Metabolic encephalopathy; J18.9 Pneumonia, unspecified organism; N17.0 Acute kidney failure with tubular necrosis; N18.5 Chronic kidney disease, stage 5; N39.0 Urinary tract infection, site not specified; I12.0 Hypertensive chronic kidney disease with stage 5 chronic kidney disease or end stage renal disease; E11.22 Type 2 diabetes mellitus with diabetic chronic kidney disease; E78.5 Hyperlipidemia, unspecified; F32.9 Major depressive disorder, single episode, unspecified; Z16.12 Extended spectrum beta lactamase (ESBL) resistance; Z86.73 Personal history of transient ischemic attack (TIA), and cerebral infarction without residual deficits; Z87.440 Personal history of urinary (tract) infections; B96.20 Unspecified Escherichia coli [E. coli] as the cause of diseases classified elsewhere; E11.65 Type 2 diabetes mellitus with hyperglycemia; Z79.84 Long term (current) use of oral hypoglycemic drugs; F01.50 Vascular dementia, unspecified severity, without behavioral disturbance, psychotic disturbance, mood disturbance, and anxiety
CPT/HCPCS: 36415; 36569; 70450-TC; 71045-TC; 76770-TC; 80048-TC; 80061-TC; 80076-TC; 80202-TC; 81000-TC; 82962-TC; 83605-TC; 83735-TC; 84100-TC; 84443-TC; 84484-TC; 85025-TC; 85730-TC; 87040-TC; 87081-TC; 87086-TC; 87186-TC; 93307-TC; 97110-TC; 97116-TC; 97530-TC; A4216; A4606; A6403; J0456; J0696; J1815; J2185; J2543; J3370; J3475; J3490; J7030; J7042; J7050; J7060; Z7610

== ENCOUNTER 2018-05-04 16:17 | Inpatient (IN) | payer MEDICARE ==
[~2018-05-04] VITALS: Ht 160 cm; Wt 39.9 kg
[~2018-05-04 16:17] MED LIST: ACET-868 PO; AMLO5TAB4 PO; ARIP5TAB10 PO; ATOR40TA PO; BLOO-668 IN; BUPR300T52 PO; CHOL100044 PO; FOLI0.8T2 PO; GABA-532 PO; GLIP5TAB3 PO; INSU100V3 SQ; ONDA4TAB5 PO
[2018-05-04 17:41] LABS: BASOPHILS # (AUTO) 0.1 /CMM (0.0-0.2); BASOPHILS % (AUTO) 0.5 % (0.0-2.0); EOSINOPHILS % (AUTO) 2.3 % (0.0-6.0); HEMATOCRIT 32 % (33-45); HEMOGLOBIN 10.3 g/dL (11.5-14.8); LYMPHOCYTES % (AUTO) 19.4 % (20.0-44.0); MEAN CORPUSCULAR HEMOGLOBIN 27 PG (26.0-33.0); MEAN CORPUSCULAR HGB CONC 32 g/dl (31.0-36.0); MEAN CORPUSCULAR VOLUME 83 fL (82-100); MONOCYTES # (AUTO) 0.7 /CMM (0.1-1.30); MONOCYTES % (AUTO) 4.4 % (2.0-12.0); NEUTROPHILS # (AUTO) 11.1 /CMM (1.8-8.9); NEUTROPHILS % (AUTO) 73.4 % (43.0-81.0); PLATELET COUNT (AUTO) 715 /CMM (150-450); RDW COEFFICIENT OF VARIATION 15.1 (11.5-15.0); RED BLOOD CELL COUNT(AUTO) 3.87 MIL/uL (4.0-5.2); WHITE BLOOD COUNT (AUTO) 15.3 K/uL (4.3-11.0)
[2018-05-04 18:09] LABS: ALBUMIN 2.4 g/dL (3.4-5.0); BILIRUBIN,TOTAL 0.2 mg/dL (0.2-1.0); CREATININE 2.9 mg/dL (0.6-1.3); INR 0.94 (0.85-1.15); POTASSIUM 4.2 mmol/L (3.5-5.1); TOTAL PROTEIN, SERUM 8.5 g/dL (6.4-8.2)
[2018-05-04] MEDS ORDERED: PIPERACILLIN /TAZOBACTAM 2.25 G in IV D5W 50 ML IV ONE (19:30)
[2018-05-04] MEDS ORDERED: ONDANSETRON HCL/PF 4 MG/2 ML VIAL IVP PRN (20:30)
[2018-05-04] MEDS ORDERED: Z GUARD REMEDY 2 OZ OINT TP PRN (20:30)
[2018-05-04] MEDS ORDERED: *INSULIN REGULAR(HUMULIN R)HUM 100 UNIT/ML VIAL SQ PRN (20:30)
[2018-05-04] MEDS ORDERED: DEXTROSE 50%-WATER 50 ML DISP.SYRIN IV PRN (20:30)
[2018-05-04] MEDS ORDERED: MAG HYDROX/AL HYDROX/SIMETH 30 ML UDC PO PRN (20:30)
[2018-05-04] MEDS ORDERED: ACETAMINOPHEN 325 MG TABLET PO PRN ×2 (20:30)
[2018-05-04] MEDS ORDERED: MAGNESIUM HYDROXIDE 30 ML UDC PO PRN (20:30)
[2018-05-04] MEDS ORDERED: MORPHINE SULFATE INJ 2 MG/ML DISP.SYRIN IV PRN (20:30)
[2018-05-04] MEDS: IV NS 0.9% 1,000 ML IV PRN (21:22)
[2018-05-04] MEDS: ATORVASTATIN 40 MG TABLET PO SCH (21:51)
[2018-05-04] MEDS: BLOOD SUGAR DIAGNOSTIC 1 EACH STRIP VI SCH (21:51)
[2018-05-04 23:00] VITALS: BP 102/57
[2018-05-05] MEDS ORDERED: MEROPENEM 500 MG VIAL IV ONE (01:36)
[2018-05-05] MEDS: MEROPENEM 500 MG in IV NS 0.9% 50 ML IV SCH (02:10)
[2018-05-05] MEDS ORDERED: VANCOMYCIN HCL 125 MG/2.5 ML ORAL.SUSP ONE (02:38)
[2018-05-05] MEDS: VANCOMYCIN HCL 125 MG/2.5 ML ORAL.SUSP PO SCH ×4 (02:52→17:11)
[2018-05-05] MEDS: PIPERACILLIN /TAZOBACTAM 2.25 G in IV D5W 50 ML IV SCH ×3 (04:52→20:53)
[2018-05-05 06:48] LABS: BASOPHILS # (AUTO) 0.1 /CMM (0.0-0.2); BASOPHILS % (AUTO) 0.5 % (0.0-2.0); EOSINOPHILS % (AUTO) 3.3 % (0.0-6.0); HEMATOCRIT 29 % (33-45); HEMOGLOBIN 9.4 g/dL (11.5-14.8); LYMPHOCYTES # (AUTO) 3.1 /CMM (0.8-4.8); MEAN CORPUSCULAR HEMOGLOBIN 27 PG (26.0-33.0); MEAN CORPUSCULAR HGB CONC 32 g/dl (31.0-36.0); MEAN CORPUSCULAR VOLUME 85 fL (82-100); MONOCYTES % (AUTO) 7.4 % (2.0-12.0); NEUTROPHILS # (AUTO) 8.9 /CMM (1.8-8.9); NEUTROPHILS % (AUTO) 65.8 % (43.0-81.0); PLATELET COUNT (AUTO) 597 /CMM (150-450); RDW COEFFICIENT OF VARIATION 16.1 (11.5-15.0); RED BLOOD CELL COUNT(AUTO) 3.44 MIL/uL (4.0-5.2); WHITE BLOOD COUNT (AUTO) 13.5 K/uL (4.3-11.0)
[2018-05-05] MEDS: BLOOD SUGAR DIAGNOSTIC 1 EACH STRIP VI SCH ×4 (06:52→22:09)
[2018-05-05 07:22] LABS: CALCIUM, SERUM 8.3 mg/dL (8.5-10.1); CREATININE 2.8 mg/dL (0.6-1.3); PHOSPHORUS 3.9 mg/dL (2.5-4.9); POTASSIUM 3.8 mmol/L (3.5-5.1)
[2018-05-05 08:00] VITALS: BP 137/79
[2018-05-05] MEDS: AMLODIPINE BESYLATE 5 MG TABLET PO SCH (08:16)
[2018-05-05] MEDS: ARIPIPRAZOLE 5 MG TABLET PO SCH (08:16)
[2018-05-05] MEDS: GABAPENTIN 100 MG CAPSULE PO SCH ×3 (08:16→17:10)
[2018-05-05] MEDS: BUPROPION XL 150 MG TAB.ER.24 PO SCH (08:16)
[2018-05-05] MEDS: FOLIC ACID 1 MG TABLET PO SCH (08:17)
[2018-05-05] MEDS: CHOLECALCIFEROL 1,000 UNIT TABLET (VIT D3) PO SCH (08:17)
[2018-05-05] MEDS: ASCORBIC ACID 500 MG TABLET PO SCH (08:17)
[2018-05-05] MEDS: IV NS 0.9% 1,000 ML IV PRN (12:29)
[2018-05-05 16:00] VITALS: BP 149/80
[2018-05-05 20:00] VITALS: BP 157/87
[2018-05-05] MEDS: ATORVASTATIN 40 MG TABLET PO SCH (22:09)
[2018-05-06] MEDS: VANCOMYCIN HCL 125 MG/2.5 ML ORAL.SUSP PO SCH ×5 (00:01→23:17)
[2018-05-06] MEDS: MEROPENEM 500 MG in IV NS 0.9% 50 ML IV SCH (01:41)
[2018-05-06] MEDS: IV NS 0.9% 1,000 ML IV PRN (01:42)
[2018-05-06] MEDS: PIPERACILLIN /TAZOBACTAM 2.25 G in IV D5W 50 ML IV SCH ×2 (04:42→12:01)
[2018-05-06] MEDS: BLOOD SUGAR DIAGNOSTIC 1 EACH STRIP VI SCH ×4 (07:08→23:07)
[2018-05-06 08:00] VITALS: BP 130/82
[2018-05-06] MEDS: FOLIC ACID 1 MG TABLET PO SCH (09:43)
[2018-05-06] MEDS: GABAPENTIN 100 MG CAPSULE PO SCH ×3 (09:43→18:14)
[2018-05-06] MEDS: ARIPIPRAZOLE 5 MG TABLET PO SCH (09:43)
[2018-05-06] MEDS: BUPROPION XL 150 MG TAB.ER.24 PO SCH (09:43)
[2018-05-06] MEDS: CHOLECALCIFEROL 1,000 UNIT TABLET (VIT D3) PO SCH (09:44)
[2018-05-06] MEDS: AMLODIPINE BESYLATE 5 MG TABLET PO SCH (09:44)
[2018-05-06] MEDS: ASCORBIC ACID 500 MG TABLET PO SCH (09:44)
[2018-05-06] MEDS: LACTOBACILLUS RHAMNOSUS GG 1 EACH CAP.SPRINK PO SCH ×2 (18:14→18:15)
[2018-05-06] MEDS: INSULIN REGULAR, HUMAN 100 UNIT/ML 3 ML VIAL SQ PRN (18:47)
[2018-05-06 19:53] VITALS: BP 155/91
[2018-05-06 19:55] VITALS: BP 155/91
[2018-05-06 20:00] VITALS: BP 155/91
[2018-05-06] MEDS: ATORVASTATIN 40 MG TABLET PO SCH (23:06)
[2018-05-06] MEDS: LORAZEPAM INJ 2 MG/ML VIAL IV PRN (23:07)
[2018-05-07] MEDS: IV NS 0.9% 1,000 ML IV PRN ×2 (00:07→14:45)
[2018-05-07] MEDS: MEROPENEM 500 MG in IV NS 0.9% 50 ML IV SCH (02:19)
[2018-05-07] MEDS: BLOOD SUGAR DIAGNOSTIC 1 EACH STRIP VI SCH ×4 (06:46→21:32)
[2018-05-07] MEDS: VANCOMYCIN HCL 125 MG/2.5 ML ORAL.SUSP PO SCH ×3 (06:46→17:31)
[2018-05-07 07:07] LABS: BASOPHILS # (AUTO) 0.1 /CMM (0.0-0.2); BASOPHILS % (AUTO) 0.6 % (0.0-2.0); EOSINOPHILS % (AUTO) 2.9 % (0.0-6.0); HEMATOCRIT 31 % (33-45); HEMOGLOBIN 10.1 g/dL (11.5-14.8); MEAN CORPUSCULAR HEMOGLOBIN 28 PG (26.0-33.0); MEAN CORPUSCULAR HGB CONC 33 g/dl (31.0-36.0); MEAN CORPUSCULAR VOLUME 85 fL (82-100); MONOCYTES # (AUTO) 1.3 /CMM (0.1-1.30); NEUTROPHILS # (AUTO) 8.4 /CMM (1.8-8.9); NEUTROPHILS % (AUTO) 59.5 % (43.0-81.0); PLATELET COUNT (AUTO) 634 /CMM (150-450); RDW COEFFICIENT OF VARIATION 15.5 (11.5-15.0); RED BLOOD CELL COUNT(AUTO) 3.64 MIL/uL (4.0-5.2); WHITE BLOOD COUNT (AUTO) 14.1 K/uL (4.3-11.0)
[2018-05-07 07:20] LABS: CALCIUM, SERUM 8.6 mg/dL (8.5-10.1); CREATININE 2.4 mg/dL (0.6-1.3); MAGNESIUM 1.8 mg/dL (1.8-2.4); PHOSPHORUS 3.9 mg/dL (2.5-4.9); POTASSIUM 3.7 mmol/L (3.5-5.1)
[2018-05-07 07:52] VITALS: BP 151/75
[2018-05-07] MEDS: ASCORBIC ACID 500 MG TABLET PO SCH (09:00)
[2018-05-07] MEDS: ARIPIPRAZOLE 5 MG TABLET PO SCH ×2 (09:00→17:19)
[2018-05-07] MEDS: BUPROPION XL 150 MG TAB.ER.24 PO SCH (09:00)
[2018-05-07] MEDS: LACTOBACILLUS RHAMNOSUS GG 1 EACH CAP.SPRINK PO SCH ×2 (09:00→17:19)
[2018-05-07] MEDS: FOLIC ACID 1 MG TABLET PO SCH (09:00)
[2018-05-07] MEDS: GABAPENTIN 100 MG CAPSULE PO SCH ×2 (09:00→13:14)
[2018-05-07] MEDS: CHOLECALCIFEROL 1,000 UNIT TABLET (VIT D3) PO SCH (09:00)
[2018-05-07] MEDS: AMLODIPINE BESYLATE 5 MG TABLET PO SCH (09:00)
[2018-05-07] MEDS ORDERED: PNEUMOCOCCAL 23-VAL P-SAC VAC 0.5 ML VIAL SQ ONE (11:30)
[2018-05-07 16:00] VITALS: BP 155/77
[2018-05-07] MEDS: INSULIN REGULAR, HUMAN 100 UNIT/ML 3 ML VIAL SQ PRN (17:53)
[2018-05-07 19:46] LABS: APPEARANCE,URINE CLOUDY (CLEAR); BILIRUBIN,URINE NEGATIVE (NEGATIVE); BLOOD, URINE 2+ Ery/uL (NEGATIVE); COLOR,URINE YELLOW (YELLOW); KETONES,URINE NEGATIVE (NEGATIVE); LEUKOCYTE ESTERASE ,URINE 3+ (NEGATIVE); NITRITE, URINE NEGATIVE (NEGATIVE); PH,URINE 6.5 (5.0-8.0); PROTEIN,URINE TRACE mg/dl (NEGATIVE); UGLUCOSE NEGATIVE (NEGATIVE); UROBILINOGEN,URINE 0.2 EU/dL (0.2)
[2018-05-07 19:49] LABS: CREATININE, URINE 21.9 MG/DL (30.0-125.0); URINE TOTAL PROTEIN 67.4 mg/dL (0-11.9)
[2018-05-07 20:00] VITALS: BP 152/75
[2018-05-07 20:27] LABS: BACTERIA,URINE Few /HPF (None Seen); SQUAMOUS EPITHELIAL CELL,UR Few /HPF (None Seen); WBC,URINE 21-50 /HPF (0-3); YEAST,URINE Few /HPF (None Seen)
[2018-05-07 21:03] LABS: EOSINOPHIL,URINE None Seen
[2018-05-07] MEDS: ATORVASTATIN 40 MG TABLET PO SCH (21:33)
[2018-05-07] MEDS: HYDROCODONE/APAP 5/325MG 1 EACH TABLET PO PRN (21:33)
[2018-05-07] MEDS ORDERED: ARIPIPRAZOLE 5 MG TABLET PO SCH (22:00)
[2018-05-08] MEDS: VANCOMYCIN HCL 125 MG/2.5 ML ORAL.SUSP PO SCH ×5 (00:35→23:08)
[2018-05-08] MEDS: MEROPENEM 500 MG in IV NS 0.9% 50 ML IV SCH (01:42)
[2018-05-08] MEDS: IV NS 0.9% 1,000 ML IV PRN ×2 (05:42→19:17)
[2018-05-08] MEDS: INSULIN REGULAR, HUMAN 100 UNIT/ML 3 ML VIAL SQ PRN ×2 (05:46→17:38)
[2018-05-08] MEDS: BLOOD SUGAR DIAGNOSTIC 1 EACH STRIP VI SCH ×4 (05:46→23:08)
[2018-05-08 06:38] LABS: CALCIUM, SERUM 8.2 mg/dL (8.5-10.1); CREATININE 2.5 mg/dL (0.6-1.3); POTASSIUM 3.5 mmol/L (3.5-5.1)
[2018-05-08 06:45] LABS: BASOPHILS # (AUTO) 0.1 /CMM (0.0-0.2); BASOPHILS % (AUTO) 0.3 % (0.0-2.0); EOSINOPHILS % (AUTO) 2.2 % (0.0-6.0); HEMATOCRIT 31 % (33-45); HEMOGLOBIN 10.3 g/dL (11.5-14.8); LYMPHOCYTES # (AUTO) 3.7 /CMM (0.8-4.8); LYMPHOCYTES % (AUTO) 20.5 % (20.0-44.0); MEAN CORPUSCULAR HEMOGLOBIN 28 PG (26.0-33.0); MEAN CORPUSCULAR HGB CONC 33 g/dl (31.0-36.0); MEAN CORPUSCULAR VOLUME 84 fL (82-100); MONOCYTES # (AUTO) 1.2 /CMM (0.1-1.30); MONOCYTES % (AUTO) 6.5 % (2.0-12.0); NEUTROPHILS # (AUTO) 12.6 /CMM (1.8-8.9); NEUTROPHILS % (AUTO) 70.5 % (43.0-81.0); PLATELET COUNT (AUTO) 601 /CMM (150-450); RDW COEFFICIENT OF VARIATION 15.5 (11.5-15.0); WHITE BLOOD COUNT (AUTO) 17.9 K/uL (4.3-11.0)
[2018-05-08 08:00] VITALS: BP 155/90
[2018-05-08] MEDS: CHOLECALCIFEROL 1,000 UNIT TABLET (VIT D3) PO SCH (09:32)
[2018-05-08] MEDS: ARIPIPRAZOLE 5 MG TABLET PO SCH (09:33)
[2018-05-08] MEDS: AMLODIPINE BESYLATE 5 MG TABLET PO SCH (09:33)
[2018-05-08] MEDS: FOLIC ACID 1 MG TABLET PO SCH (09:34)
[2018-05-08] MEDS: LACTOBACILLUS RHAMNOSUS GG 1 EACH CAP.SPRINK PO SCH ×2 (09:34→16:39)
[2018-05-08] MEDS: ASCORBIC ACID 500 MG TABLET PO SCH (09:35)
[2018-05-08] MEDS: BENZTROPINE MESYLATE (1 MG) 1 MG TABLET PO SCH ×2 (13:48→16:39)
[2018-05-08] MEDS: risperiDONE-M 0.5 MG TAB.RAPDIS PO SCH ×2 (13:49→16:39)
[2018-05-08 16:00] VITALS: BP 141/80
[2018-05-08 20:40] VITALS: BP 148/81
[2018-05-08] MEDS: ATORVASTATIN 40 MG TABLET PO SCH (23:08)
[2018-05-09] MEDS: MEROPENEM 500 MG in IV NS 0.9% 50 ML IV SCH (01:10)
[2018-05-09] MEDS: VANCOMYCIN HCL 125 MG/2.5 ML ORAL.SUSP PO SCH ×3 (06:16→17:09)
[2018-05-09] MEDS: BLOOD SUGAR DIAGNOSTIC 1 EACH STRIP VI SCH ×4 (06:30→21:33)
[2018-05-09 07:28] LABS: BASOPHILS # (AUTO) 0.1 /CMM (0.0-0.2); BASOPHILS % (AUTO) 0.3 % (0.0-2.0); EOSINOPHILS % (AUTO) 1.9 % (0.0-6.0); HEMATOCRIT 29 % (33-45); HEMOGLOBIN 9.5 g/dL (11.5-14.8); LYMPHOCYTES # (AUTO) 3.2 /CMM (0.8-4.8); LYMPHOCYTES % (AUTO) 16.5 % (20.0-44.0); MEAN CORPUSCULAR HEMOGLOBIN 28 PG (26.0-33.0); MEAN CORPUSCULAR HGB CONC 33 g/dl (31.0-36.0); MEAN CORPUSCULAR VOLUME 85 fL (82-100); MONOCYTES # (AUTO) 1.2 /CMM (0.1-1.30); MONOCYTES % (AUTO) 6.4 % (2.0-12.0); NEUTROPHILS # (AUTO) 14.3 /CMM (1.8-8.9); NEUTROPHILS % (AUTO) 74.9 % (43.0-81.0); PLATELET COUNT (AUTO) 566 /CMM (150-450); RDW COEFFICIENT OF VARIATION 15.5 (11.5-15.0); RED BLOOD CELL COUNT(AUTO) 3.47 MIL/uL (4.0-5.2); WHITE BLOOD COUNT (AUTO) 19.1 K/uL (4.3-11.0)
[2018-05-09 07:44] LABS: CALCIUM, SERUM 8.4 mg/dL (8.5-10.1); CREATININE 2.4 mg/dL (0.6-1.3); POTASSIUM 3.2 mmol/L (3.5-5.1)
[2018-05-09 08:00] VITALS: BP 132/75
[2018-05-09] MEDS: FOLIC ACID 1 MG TABLET PO SCH (08:35)
[2018-05-09] MEDS: LACTOBACILLUS RHAMNOSUS GG 1 EACH CAP.SPRINK PO SCH ×2 (08:35→17:08)
[2018-05-09] MEDS: risperiDONE-M 0.5 MG TAB.RAPDIS PO SCH ×3 (08:36→17:08)
[2018-05-09] MEDS: AMLODIPINE BESYLATE 5 MG TABLET PO SCH (08:36)
[2018-05-09] MEDS: CHOLECALCIFEROL 1,000 UNIT TABLET (VIT D3) PO SCH (08:36)
[2018-05-09] MEDS: ASCORBIC ACID 500 MG TABLET PO SCH (08:36)
[2018-05-09] MEDS: BENZTROPINE MESYLATE (1 MG) 1 MG TABLET PO SCH ×3 (08:36→17:08)
[2018-05-09] MEDS ORDERED: POTASSIUM CHLORIDE 20 MEQ TAB.PRT.SR PO SCH (09:30)
[2018-05-09] MEDS ORDERED: POTASSIUM CHLORIDE 20 MEQ POWDER PACKET PO ONE (09:30)
[2018-05-09] MEDS: IV NS 0.9% 1,000 ML IV PRN ×2 (10:31→22:38)
[2018-05-09 16:00] VITALS: BP 141/74
[2018-05-09 19:59] VITALS: BP 155/77
[2018-05-09] MEDS: ATORVASTATIN 40 MG TABLET PO SCH (21:38)
[2018-05-09 21:53] VITALS: BP 137/79
[2018-05-10] MEDS: IV D5/0.45 NACL 1,000 ML IV PRN ×2 (01:15→23:30)
[2018-05-10] MEDS: VANCOMYCIN HCL 125 MG/2.5 ML ORAL.SUSP PO SCH ×5 (05:01→23:18)
[2018-05-10] MEDS: BLOOD SUGAR DIAGNOSTIC 1 EACH STRIP VI SCH ×4 (06:00→22:01)
[2018-05-10 07:08] LABS: BASOPHILS % (AUTO) 0.1 % (0.0-2.0); HEMATOCRIT 29 % (33-45); HEMOGLOBIN 9.3 g/dL (11.5-14.8); LYMPHOCYTES # (AUTO) 4.3 /CMM (0.8-4.8); LYMPHOCYTES % (AUTO) 19.9 % (20.0-44.0); MEAN CORPUSCULAR HEMOGLOBIN 28 PG (26.0-33.0); MEAN CORPUSCULAR HGB CONC 33 g/dl (31.0-36.0); MEAN CORPUSCULAR VOLUME 85 fL (82-100); MONOCYTES # (AUTO) 1.5 /CMM (0.1-1.30); MONOCYTES % (AUTO) 6.8 % (2.0-12.0); NEUTROPHILS # (AUTO) 15.3 /CMM (1.8-8.9); NEUTROPHILS % (AUTO) 71.2 % (43.0-81.0); PLATELET COUNT (AUTO) 537 /CMM (150-450); RDW COEFFICIENT OF VARIATION 15.8 (11.5-15.0); RED BLOOD CELL COUNT(AUTO) 3.39 MIL/uL (4.0-5.2); WHITE BLOOD COUNT (AUTO) 21.5 K/uL (4.3-11.0)
[2018-05-10 07:10] LABS: CALCIUM, SERUM 8.1 mg/dL (8.5-10.1); CREATININE 2.4 mg/dL (0.6-1.3); POTASSIUM 3.2 mmol/L (3.5-5.1)
[2018-05-10 08:00] VITALS: BP 138/78
[2018-05-10] MEDS: CHOLECALCIFEROL 1,000 UNIT TABLET (VIT D3) PO SCH (08:44)
[2018-05-10] MEDS: LACTOBACILLUS RHAMNOSUS GG 1 EACH CAP.SPRINK PO SCH ×2 (08:44→17:00)
[2018-05-10] MEDS: AMLODIPINE BESYLATE 5 MG TABLET PO SCH (08:44)
[2018-05-10] MEDS: FOLIC ACID 1 MG TABLET PO SCH (08:44)
[2018-05-10] MEDS: risperiDONE-M 0.5 MG TAB.RAPDIS PO SCH ×3 (08:44→17:00)
[2018-05-10] MEDS: ASCORBIC ACID 500 MG TABLET PO SCH (08:44)
[2018-05-10] MEDS: BENZTROPINE MESYLATE (1 MG) 1 MG TABLET PO SCH ×3 (08:44→17:00)
[2018-05-10] MEDS ORDERED: DIATR MEGLU/DIATRIZOATE SODIUM 30 ML BOTTLE (GASTROGRAPHIN) ONE (08:56)
[2018-05-10] MEDS: PANTOPRAZOLE 40 MG VIAL IV SCH (10:30)
[2018-05-10] MEDS ORDERED: POTASSIUM CHLORIDE 20 MEQ POWDER PACKET PO ONE (11:30)
[2018-05-10] MEDS: METRONIDAZOLE 500MG/ NS 100ML 500 MG in PREMIX 1 EA IV SCH ×2 (12:49→20:00)
[2018-05-10] MEDS: LORAZEPAM INJ 2 MG/ML VIAL IV PRN ×2 (14:38→22:07)
[2018-05-10 16:00] VITALS: BP 135/69
[2018-05-10] MEDS: FLUCONAZOLE IN NS 200 MG in PREMIX 1 EA IV SCH ×2 (17:56)
[2018-05-10 20:00] VITALS: BP 112/83
[2018-05-10] MEDS: ATORVASTATIN 40 MG TABLET PO SCH (21:27)
[2018-05-10] MEDS: INSULIN REGULAR, HUMAN 100 UNIT/ML 3 ML VIAL SQ PRN (22:02)
[2018-05-11] MEDS ORDERED: NA PHOS,M-B/NA PHOS,DI-BA 1 EA ENEMA RC SCH
[2018-05-11] MEDS: METRONIDAZOLE 500MG/ NS 100ML 500 MG in PREMIX 1 EA IV SCH ×3 (02:51→19:26)
[2018-05-11] MEDS: VANCOMYCIN HCL 125 MG/2.5 ML ORAL.SUSP PO SCH ×3 (06:53→17:15)
[2018-05-11] MEDS: BLOOD SUGAR DIAGNOSTIC 1 EACH STRIP VI SCH ×4 (06:53→22:01)
[2018-05-11 07:46] LABS: BASOPHILS # (AUTO) 0.1 /CMM (0.0-0.2); BASOPHILS % (AUTO) 0.3 % (0.0-2.0); HEMATOCRIT 32 % (33-45); HEMOGLOBIN 10.4 g/dL (11.5-14.8); LYMPHOCYTES % (AUTO) 18.4 % (20.0-44.0); MEAN CORPUSCULAR HEMOGLOBIN 28 PG (26.0-33.0); MEAN CORPUSCULAR HGB CONC 32 g/dl (31.0-36.0); MEAN CORPUSCULAR VOLUME 85 fL (82-100); MONOCYTES # (AUTO) 0.9 /CMM (0.1-1.30); MONOCYTES % (AUTO) 5.5 % (2.0-12.0); NEUTROPHILS # (AUTO) 11.8 /CMM (1.8-8.9); NEUTROPHILS % (AUTO) 72.8 % (43.0-81.0); PLATELET COUNT (AUTO) 514 /CMM (150-450); RDW COEFFICIENT OF VARIATION 15.6 (11.5-15.0); RED BLOOD CELL COUNT(AUTO) 3.76 MIL/uL (4.0-5.2); WHITE BLOOD COUNT (AUTO) 16.2 K/uL (4.3-11.0)
[2018-05-11 07:55] LABS: CALCIUM, SERUM 8.3 mg/dL (8.5-10.1); CREATININE 2.4 mg/dL (0.6-1.3); POTASSIUM 3.1 mmol/L (3.5-5.1)
[2018-05-11 08:00] VITALS: BP 153/87
[2018-05-11] MEDS ORDERED: POTASSIUM CHLORIDE 20 MEQ POWDER PACKET PO SCH (09:30)
[2018-05-11] MEDS: risperiDONE-M 0.5 MG TAB.RAPDIS PO SCH ×3 (10:32→17:16)
[2018-05-11] MEDS: FOLIC ACID 1 MG TABLET PO SCH (10:32)
[2018-05-11] MEDS: PANTOPRAZOLE 40 MG VIAL IV SCH (10:32)
[2018-05-11] MEDS: LACTOBACILLUS RHAMNOSUS GG 1 EACH CAP.SPRINK PO SCH ×2 (10:33→17:16)
[2018-05-11] MEDS: BENZTROPINE MESYLATE (1 MG) 1 MG TABLET PO SCH ×3 (10:33→17:16)
[2018-05-11] MEDS: CHOLECALCIFEROL 1,000 UNIT TABLET (VIT D3) PO SCH (10:33)
[2018-05-11] MEDS: ASCORBIC ACID 500 MG TABLET PO SCH (10:33)
[2018-05-11] MEDS: AMLODIPINE BESYLATE 5 MG TABLET PO SCH (10:34)
[2018-05-11] MEDS: INSULIN REGULAR, HUMAN 100 UNIT/ML 3 ML VIAL SQ PRN (13:22)
[2018-05-11] MEDS: IV D5/0.45 NACL 1,000 ML IV PRN (14:53)
[2018-05-11 16:00] VITALS: BP 137/76
[2018-05-11] MEDS: DIVALPROEX SODIUM 125 MG TABLET.DR PO SCH (17:16)
[2018-05-11] MEDS: FLUCONAZOLE IN NS 200 MG in PREMIX 1 EA IV SCH ×2 (17:22)
[2018-05-11 20:00] VITALS: BP 141/81
[2018-05-11] MEDS: ATORVASTATIN 40 MG TABLET PO SCH (22:01)
[2018-05-12] MEDS: VANCOMYCIN HCL 125 MG/2.5 ML ORAL.SUSP PO SCH ×4 (00:10→17:28)
[2018-05-12] MEDS: METRONIDAZOLE 500MG/ NS 100ML 500 MG in PREMIX 1 EA IV SCH ×3 (03:44→19:46)
[2018-05-12] MEDS: LORAZEPAM INJ 2 MG/ML VIAL IV PRN (03:50)
[2018-05-12] MEDS: BLOOD SUGAR DIAGNOSTIC 1 EACH STRIP VI SCH ×4 (06:15→22:41)
[2018-05-12] MEDS: IV D5/0.45 NACL 1,000 ML IV PRN (06:53)
[2018-05-12 08:00] VITALS: BP 149/86
[2018-05-12 08:20] LABS: BASOPHILS # (AUTO) 0.1 /CMM (0.0-0.2); BASOPHILS % (AUTO) 0.6 % (0.0-2.0); EOSINOPHILS % (AUTO) 3.9 % (0.0-6.0); HEMATOCRIT 32 % (33-45); HEMOGLOBIN 10.4 g/dL (11.5-14.8); LYMPHOCYTES # (AUTO) 3.4 /CMM (0.8-4.8); LYMPHOCYTES % (AUTO) 24.3 % (20.0-44.0); MEAN CORPUSCULAR HEMOGLOBIN 28 PG (26.0-33.0); MEAN CORPUSCULAR HGB CONC 33 g/dl (31.0-36.0); MEAN CORPUSCULAR VOLUME 85 fL (82-100); NEUTROPHILS # (AUTO) 8.9 /CMM (1.8-8.9); NEUTROPHILS % (AUTO) 64.2 % (43.0-81.0); PLATELET COUNT (AUTO) 553 /CMM (150-450); RDW COEFFICIENT OF VARIATION 15.9 (11.5-15.0); RED BLOOD CELL COUNT(AUTO) 3.75 MIL/uL (4.0-5.2); WHITE BLOOD COUNT (AUTO) 13.9 K/uL (4.3-11.0)
[2018-05-12 09:12] LABS: CALCIUM, SERUM 8.3 mg/dL (8.5-10.1); CREATININE 2.3 mg/dL (0.6-1.3); MAGNESIUM 1.8 mg/dL (1.8-2.4); PHOSPHORUS 4.2 mg/dL (2.5-4.9); POTASSIUM 3.1 mmol/L (3.5-5.1)
[2018-05-12] MEDS: AMLODIPINE BESYLATE 5 MG TABLET PO SCH (10:13)
[2018-05-12] MEDS: FOLIC ACID 1 MG TABLET PO SCH (10:13)
[2018-05-12] MEDS: LACTOBACILLUS RHAMNOSUS GG 1 EACH CAP.SPRINK PO SCH ×2 (10:13→17:25)
[2018-05-12] MEDS: risperiDONE-M 0.5 MG TAB.RAPDIS PO SCH ×3 (10:14→17:25)
[2018-05-12] MEDS: ASCORBIC ACID 500 MG TABLET PO SCH (10:14)
[2018-05-12] MEDS: DIVALPROEX SODIUM 125 MG TABLET.DR PO SCH ×3 (10:14→17:25)
[2018-05-12] MEDS: CHOLECALCIFEROL 1,000 UNIT TABLET (VIT D3) PO SCH (10:14)
[2018-05-12] MEDS: BENZTROPINE MESYLATE (1 MG) 1 MG TABLET PO SCH ×3 (10:14→17:25)
[2018-05-12] MEDS: PANTOPRAZOLE 40 MG VIAL IV SCH (10:18)
[2018-05-12] MEDS: INSULIN REGULAR, HUMAN 100 UNIT/ML 3 ML VIAL SQ PRN ×2 (12:24→12:51)
[2018-05-12 16:00] VITALS: BP 143/77
[2018-05-12] MEDS: FLUCONAZOLE IN NS 200 MG in PREMIX 1 EA IV SCH ×2 (17:28)
[2018-05-12 20:00] VITALS: BP 147/88
[2018-05-12] MEDS: ATORVASTATIN 40 MG TABLET PO SCH (21:07)
[2018-05-12] MEDS: POTASSIUM CL. PREMIX PERIPHER. 50 ML IV SCH ×3 (22:01→23:43)
[2018-05-13] MEDS: POTASSIUM CL. PREMIX PERIPHER. 50 ML IV SCH (00:06)
[2018-05-13] MEDS: VANCOMYCIN HCL 125 MG/2.5 ML ORAL.SUSP PO SCH ×5 (00:06→23:46)
[2018-05-13] MEDS: IV D5/0.45 NACL 1,000 ML IV PRN ×2 (01:07→16:45)
[2018-05-13] MEDS: METRONIDAZOLE 500MG/ NS 100ML 500 MG in PREMIX 1 EA IV SCH ×3 (02:13→18:46)
[2018-05-13] MEDS: BLOOD SUGAR DIAGNOSTIC 1 EACH STRIP VI SCH ×4 (06:30→21:43)
[2018-05-13] MEDS: INSULIN REGULAR, HUMAN 100 UNIT/ML 3 ML VIAL SQ PRN ×2 (06:33→17:13)
[2018-05-13 06:43] LABS: CALCIUM, SERUM 8.3 mg/dL (8.5-10.1); CREATININE 2.3 mg/dL (0.6-1.3); MAGNESIUM 1.7 mg/dL (1.8-2.4); PHOSPHORUS 3.7 mg/dL (2.5-4.9); POTASSIUM 3.6 mmol/L (3.5-5.1)
[2018-05-13 08:00] VITALS: BP 132/83
[2018-05-13] MEDS: BENZTROPINE MESYLATE (1 MG) 1 MG TABLET PO SCH ×4 (10:29→21:28)
[2018-05-13] MEDS: ASCORBIC ACID 500 MG TABLET PO SCH (10:29)
[2018-05-13] MEDS: CHOLECALCIFEROL 1,000 UNIT TABLET (VIT D3) PO SCH (10:29)
[2018-05-13] MEDS: FOLIC ACID 1 MG TABLET PO SCH (10:29)
[2018-05-13] MEDS: risperiDONE-M 0.5 MG TAB.RAPDIS PO SCH ×3 (10:29→16:34)
[2018-05-13] MEDS: DIVALPROEX SODIUM 125 MG TABLET.DR PO SCH ×3 (10:29→16:34)
[2018-05-13] MEDS: PANTOPRAZOLE 40 MG VIAL IV SCH (10:30)
[2018-05-13] MEDS ORDERED: Magnesium 1GM/D5W 100ML PREMIX 100 ML IV SCH (10:30)
[2018-05-13] MEDS: AMLODIPINE BESYLATE 5 MG TABLET PO SCH (10:30)
[2018-05-13] MEDS: LACTOBACILLUS RHAMNOSUS GG 1 EACH CAP.SPRINK PO SCH ×2 (10:30→16:34)
[2018-05-13 16:00] VITALS: BP 150/83
[2018-05-13] MEDS: FLUCONAZOLE IN NS 200 MG in PREMIX 1 EA IV SCH ×2 (18:24)
[2018-05-13 20:22] VITALS: BP 137/85
[2018-05-13] MEDS: DIVALPROEX SODIUM 250 MG TABLET.DR PO SCH (21:28)
[2018-05-13] MEDS: risperiDONE 1 MG TABLET PO SCH (21:28)
[2018-05-13] MEDS: ATORVASTATIN 40 MG TABLET PO SCH (21:28)
[2018-05-14 00:52] VITALS: BP 143/80
[2018-05-14] MEDS: METRONIDAZOLE 500MG/ NS 100ML 500 MG in PREMIX 1 EA IV SCH ×3 (02:03→18:10)
[2018-05-14] MEDS: VANCOMYCIN HCL 125 MG/2.5 ML ORAL.SUSP PO SCH ×3 (06:49→17:02)
[2018-05-14] MEDS: BLOOD SUGAR DIAGNOSTIC 1 EACH STRIP VI SCH ×4 (06:50→23:11)
[2018-05-14 08:06] LABS: BASOPHILS % (AUTO) 0.3 % (0.0-2.0); EOSINOPHILS % (AUTO) 4.6 % (0.0-6.0); HEMATOCRIT 32 % (33-45); HEMOGLOBIN 10.2 g/dL (11.5-14.8); LYMPHOCYTES # (AUTO) 3.5 /CMM (0.8-4.8); LYMPHOCYTES % (AUTO) 26.9 % (20.0-44.0); MEAN CORPUSCULAR HEMOGLOBIN 27 PG (26.0-33.0); MEAN CORPUSCULAR HGB CONC 32 g/dl (31.0-36.0); MEAN CORPUSCULAR VOLUME 85 fL (82-100); NEUTROPHILS # (AUTO) 7.7 /CMM (1.8-8.9); NEUTROPHILS % (AUTO) 60.2 % (43.0-81.0); PLATELET COUNT (AUTO) 477 /CMM (150-450); RDW COEFFICIENT OF VARIATION 15.5 (11.5-15.0); RED BLOOD CELL COUNT(AUTO) 3.77 MIL/uL (4.0-5.2); WHITE BLOOD COUNT (AUTO) 12.8 K/uL (4.3-11.0)
[2018-05-14] MEDS: ASCORBIC ACID 500 MG TABLET PO SCH (08:21)
[2018-05-14] MEDS: BENZTROPINE MESYLATE (1 MG) 1 MG TABLET PO SCH ×4 (08:21→22:00)
[2018-05-14] MEDS: CHOLECALCIFEROL 1,000 UNIT TABLET (VIT D3) PO SCH (08:21)
[2018-05-14] MEDS: HYDROCODONE/APAP 5/325MG 1 EACH TABLET PO PRN (08:21)
[2018-05-14] MEDS: FOLIC ACID 1 MG TABLET PO SCH (08:21)
[2018-05-14] MEDS: DIVALPROEX SODIUM 125 MG TABLET.DR PO SCH ×3 (08:22→16:49)
[2018-05-14] MEDS: LACTOBACILLUS RHAMNOSUS GG 1 EACH CAP.SPRINK PO SCH ×2 (08:22→16:49)
[2018-05-14] MEDS: risperiDONE-M 0.5 MG TAB.RAPDIS PO SCH ×3 (08:22→16:49)
[2018-05-14] MEDS: AMLODIPINE BESYLATE 5 MG TABLET PO SCH (08:23)
[2018-05-14 09:58] LABS: CALCIUM, SERUM 8.4 mg/dL (8.5-10.1); CREATININE 2.4 mg/dL (0.6-1.3); MAGNESIUM 2.1 mg/dL (1.8-2.4); POTASSIUM 3.6 mmol/L (3.5-5.1)
[2018-05-14] MEDS: PANTOPRAZOLE 40 MG VIAL IV SCH (10:43)
[2018-05-14 20:00] VITALS: BP 129/72
[2018-05-14] MEDS: LORAZEPAM INJ 2 MG/ML VIAL IV PRN (21:26)
[2018-05-14] MEDS: ATORVASTATIN 40 MG TABLET PO SCH (22:00)
[2018-05-14] MEDS: risperiDONE 1 MG TABLET PO SCH (22:00)
[2018-05-14] MEDS: DIVALPROEX SODIUM 250 MG TABLET.DR PO SCH (22:00)
[2018-05-15] MEDS: METRONIDAZOLE 500MG/ NS 100ML 500 MG in PREMIX 1 EA IV SCH ×3 (03:12→18:07)
[2018-05-15] MEDS: VANCOMYCIN HCL 125 MG/2.5 ML ORAL.SUSP PO SCH ×5 (06:25→23:33)
[2018-05-15] MEDS: BLOOD SUGAR DIAGNOSTIC 1 EACH STRIP VI SCH ×4 (06:39→21:22)
[2018-05-15 06:57] LABS: BASOPHILS % (AUTO) 0.1 % (0.0-2.0); EOSINOPHILS % (AUTO) 5.4 % (0.0-6.0); HEMATOCRIT 33 % (33-45); HEMOGLOBIN 10.6 g/dL (11.5-14.8); LYMPHOCYTES # (AUTO) 3.5 /CMM (0.8-4.8); LYMPHOCYTES % (AUTO) 32.5 % (20.0-44.0); MEAN CORPUSCULAR HEMOGLOBIN 28 PG (26.0-33.0); MEAN CORPUSCULAR HGB CONC 32 g/dl (31.0-36.0); MEAN CORPUSCULAR VOLUME 85 fL (82-100); MONOCYTES # (AUTO) 0.9 /CMM (0.1-1.30); MONOCYTES % (AUTO) 8.4 % (2.0-12.0); NEUTROPHILS # (AUTO) 5.8 /CMM (1.8-8.9); NEUTROPHILS % (AUTO) 53.6 % (43.0-81.0); PLATELET COUNT (AUTO) 482 /CMM (150-450); RDW COEFFICIENT OF VARIATION 15.7 (11.5-15.0); RED BLOOD CELL COUNT(AUTO) 3.85 MIL/uL (4.0-5.2); WHITE BLOOD COUNT (AUTO) 10.9 K/uL (4.3-11.0)
[2018-05-15 07:05] LABS: CALCIUM, SERUM 8.1 mg/dL (8.5-10.1); CREATININE 2.4 mg/dL (0.6-1.3); MAGNESIUM 1.9 mg/dL (1.8-2.4); PHOSPHORUS 4.2 mg/dL (2.5-4.9); POTASSIUM 3.3 mmol/L (3.5-5.1)
[2018-05-15 08:00] VITALS: BP 119/73
[2018-05-15] MEDS: risperiDONE-M 0.5 MG TAB.RAPDIS PO SCH ×3 (08:08→17:27)
[2018-05-15] MEDS: LACTOBACILLUS RHAMNOSUS GG 1 EACH CAP.SPRINK PO SCH ×2 (08:08→17:27)
[2018-05-15] MEDS: BENZTROPINE MESYLATE (1 MG) 1 MG TABLET PO SCH ×4 (08:08→21:13)
[2018-05-15] MEDS: ASCORBIC ACID 500 MG TABLET PO SCH (08:09)
[2018-05-15] MEDS: CHOLECALCIFEROL 1,000 UNIT TABLET (VIT D3) PO SCH (08:09)
[2018-05-15] MEDS: FOLIC ACID 1 MG TABLET PO SCH (08:09)
[2018-05-15] MEDS: AMLODIPINE BESYLATE 5 MG TABLET PO SCH (08:09)
[2018-05-15] MEDS: DIVALPROEX SODIUM 125 MG TABLET.DR PO SCH ×3 (08:09→17:27)
[2018-05-15] MEDS ORDERED: POTASSIUM CHLORIDE 20 MEQ POWDER PACKET GT ONE (11:00)
[2018-05-15] MEDS: PANTOPRAZOLE 40 MG VIAL IV SCH (12:09)
[2018-05-15] MEDS: INSULIN REGULAR, HUMAN 100 UNIT/ML 3 ML VIAL SQ PRN (12:23)
[2018-05-15 16:00] VITALS: BP 132/78
[2018-05-15 20:00] VITALS: BP 134/80
[2018-05-15] MEDS: DIVALPROEX SODIUM 250 MG TABLET.DR PO SCH (21:13)
[2018-05-15] MEDS: ATORVASTATIN 40 MG TABLET PO SCH (21:14)
[2018-05-15] MEDS: risperiDONE 1 MG TABLET PO SCH (21:14)
[2018-05-15] MEDS: LORAZEPAM INJ 2 MG/ML VIAL IV PRN (23:33)
[2018-05-16] MEDS: METRONIDAZOLE 500MG/ NS 100ML 500 MG in PREMIX 1 EA IV SCH (03:03)
[2018-05-16] MEDS: VANCOMYCIN HCL 125 MG/2.5 ML ORAL.SUSP PO SCH ×3 (06:32→17:05)
[2018-05-16] MEDS: BLOOD SUGAR DIAGNOSTIC 1 EACH STRIP VI SCH ×4 (06:37→21:09)
[2018-05-16 06:48] LABS: BASOPHILS # (AUTO) 0.1 /CMM (0.0-0.2); BASOPHILS % (AUTO) 0.5 % (0.0-2.0); EOSINOPHILS % (AUTO) 4.6 % (0.0-6.0); HEMATOCRIT 33 % (33-45); HEMOGLOBIN 10.6 g/dL (11.5-14.8); LYMPHOCYTES # (AUTO) 4.1 /CMM (0.8-4.8); LYMPHOCYTES % (AUTO) 33.9 % (20.0-44.0); MEAN CORPUSCULAR HEMOGLOBIN 27 PG (26.0-33.0); MEAN CORPUSCULAR HGB CONC 32 g/dl (31.0-36.0); MEAN CORPUSCULAR VOLUME 85 fL (82-100); MONOCYTES # (AUTO) 1.1 /CMM (0.1-1.30); MONOCYTES % (AUTO) 8.9 % (2.0-12.0); NEUTROPHILS # (AUTO) 6.3 /CMM (1.8-8.9); NEUTROPHILS % (AUTO) 52.1 % (43.0-81.0); PLATELET COUNT (AUTO) 489 /CMM (150-450); RDW COEFFICIENT OF VARIATION 15.8 (11.5-15.0); RED BLOOD CELL COUNT(AUTO) 3.91 MIL/uL (4.0-5.2); WHITE BLOOD COUNT (AUTO) 12.1 K/uL (4.3-11.0)
[2018-05-16 07:20] LABS: CALCIUM, SERUM 8.4 mg/dL (8.5-10.1); CREATININE 2.4 mg/dL (0.6-1.3); MAGNESIUM 1.8 mg/dL (1.8-2.4); PHOSPHORUS 3.8 mg/dL (2.5-4.9); POTASSIUM 3.6 mmol/L (3.5-5.1)
[2018-05-16 08:00] VITALS: BP 130/84
[2018-05-16] MEDS: risperiDONE-M 0.5 MG TAB.RAPDIS PO SCH ×3 (08:40→16:48)
[2018-05-16] MEDS: DIVALPROEX SODIUM 125 MG TABLET.DR PO SCH ×3 (08:40→16:48)
[2018-05-16] MEDS: ASCORBIC ACID 500 MG TABLET PO SCH (08:40)
[2018-05-16] MEDS: BENZTROPINE MESYLATE (1 MG) 1 MG TABLET PO SCH ×4 (08:40→21:09)
[2018-05-16] MEDS: FOLIC ACID 1 MG TABLET PO SCH (08:40)
[2018-05-16] MEDS: CHOLECALCIFEROL 1,000 UNIT TABLET (VIT D3) PO SCH (08:40)
[2018-05-16] MEDS: LACTOBACILLUS RHAMNOSUS GG 1 EACH CAP.SPRINK PO SCH ×2 (08:40→16:48)
[2018-05-16] MEDS: AMLODIPINE BESYLATE 5 MG TABLET PO SCH (08:40)
[2018-05-16] MEDS: PANTOPRAZOLE 40 MG VIAL IV SCH (10:44)
[2018-05-16] MEDS: INSULIN REGULAR, HUMAN 100 UNIT/ML 3 ML VIAL SQ PRN ×2 (12:09→17:02)
[2018-05-16] MEDS: METRONIDAZOLE 500 MG TABLET PO SCH ×2 (12:55→21:09)
[2018-05-16 16:00] VITALS: BP 137/73
[2018-05-16 20:00] VITALS: BP 143/85
[2018-05-16] MEDS: ATORVASTATIN 40 MG TABLET PO SCH (21:08)
[2018-05-16] MEDS: risperiDONE 1 MG TABLET PO SCH (21:08)
[2018-05-16] MEDS: DIVALPROEX SODIUM 250 MG TABLET.DR PO SCH (21:08)
[2018-05-17] MEDS: VANCOMYCIN HCL 125 MG/2.5 ML ORAL.SUSP PO SCH ×3 (00:15→11:57)
[2018-05-17] MEDS: METRONIDAZOLE 500 MG TABLET PO SCH ×2 (05:56→12:02)
[2018-05-17] MEDS: BLOOD SUGAR DIAGNOSTIC 1 EACH STRIP VI SCH ×2 (06:41→11:56)
[2018-05-17] MEDS: INSULIN REGULAR, HUMAN 100 UNIT/ML 3 ML VIAL SQ PRN ×2 (06:42→12:12)
[2018-05-17 07:21] LABS: BASOPHILS # (AUTO) 0.1 /CMM (0.0-0.2); BASOPHILS % (AUTO) 0.6 % (0.0-2.0); EOSINOPHILS % (AUTO) 3.8 % (0.0-6.0); HEMATOCRIT 34 % (33-45); HEMOGLOBIN 11.1 g/dL (11.5-14.8); LYMPHOCYTES # (AUTO) 4.2 /CMM (0.8-4.8); LYMPHOCYTES % (AUTO) 34.3 % (20.0-44.0); MEAN CORPUSCULAR HEMOGLOBIN 27 PG (26.0-33.0); MEAN CORPUSCULAR HGB CONC 33 g/dl (31.0-36.0); MEAN CORPUSCULAR VOLUME 84 fL (82-100); MONOCYTES # (AUTO) 1.1 /CMM (0.1-1.30); MONOCYTES % (AUTO) 8.7 % (2.0-12.0); NEUTROPHILS # (AUTO) 6.4 /CMM (1.8-8.9); NEUTROPHILS % (AUTO) 52.6 % (43.0-81.0); PLATELET COUNT (AUTO) 458 /CMM (150-450); RED BLOOD CELL COUNT(AUTO) 4.06 MIL/uL (4.0-5.2); WHITE BLOOD COUNT (AUTO) 12.2 K/uL (4.3-11.0)
[2018-05-17 07:36] LABS: CALCIUM, SERUM 8.7 mg/dL (8.5-10.1); CREATININE 2.3 mg/dL (0.6-1.3); MAGNESIUM 1.9 mg/dL (1.8-2.4); PHOSPHORUS 4.1 mg/dL (2.5-4.9); POTASSIUM 3.7 mmol/L (3.5-5.1)
[2018-05-17 09:00] VITALS: BP 112/60
[2018-05-17] MEDS: AMLODIPINE BESYLATE 5 MG TABLET PO SCH (09:00)
[2018-05-17] MEDS: ASCORBIC ACID 500 MG TABLET PO SCH (09:24)
[2018-05-17] MEDS: DIVALPROEX SODIUM 125 MG TABLET.DR PO SCH ×2 (09:24→12:04)
[2018-05-17] MEDS: CHOLECALCIFEROL 1,000 UNIT TABLET (VIT D3) PO SCH (09:24)
[2018-05-17] MEDS: LACTOBACILLUS RHAMNOSUS GG 1 EACH CAP.SPRINK PO SCH (09:24)
[2018-05-17] MEDS: BENZTROPINE MESYLATE (1 MG) 1 MG TABLET PO SCH ×2 (09:25→11:57)
[2018-05-17] MEDS: FOLIC ACID 1 MG TABLET PO SCH (09:25)
[2018-05-17] MEDS: risperiDONE-M 0.5 MG TAB.RAPDIS PO SCH ×2 (09:25→12:05)
[2018-05-17] MEDS: PANTOPRAZOLE 40 MG VIAL IV SCH (09:30)
[2018-05-17] MEDS ORDERED: DIVA125T2 PO (10:55)
[2018-05-17] MEDS ORDERED: LACT1CAP72 PO (10:55)
[2018-05-17] MEDS ORDERED: ASCO500T9 PO (10:55)
[2018-05-17] MEDS ORDERED: RISP1TAB7 PO (10:55)
[2018-05-17] MEDS ORDERED: risperiDONE-M PO (10:55)
[2018-05-17] MEDS ORDERED: DIVA250T4 PO (10:55)
[2018-05-17] MEDS ORDERED: VANC125C11 PO (10:55)
== END 2018-05-17 14:15 | DRG 871 ==
LOC: ER 16:19 → MED 20:07
PROVIDERS: ADMIT Internal Medicine; ATTEND Internal Medicine
DX: A41.9 Sepsis, unspecified organism (principal); G92 Toxic encephalopathy; E43 Unspecified severe protein-calorie malnutrition; A04.72 Enterocolitis due to Clostridium difficile, not specified as recurrent; N18.5 Chronic kidney disease, stage 5; I12.0 Hypertensive chronic kidney disease with stage 5 chronic kidney disease or end stage renal disease; N17.9 Acute kidney failure, unspecified; F05 Delirium due to known physiological condition; B37.49 Other urogenital candidiasis; Z68.1 Body mass index [BMI] 19.9 or less, adult; E11.22 Type 2 diabetes mellitus with diabetic chronic kidney disease; K62.89 Other specified diseases of anus and rectum; D63.8 Anemia in other chronic diseases classified elsewhere; E78.5 Hyperlipidemia, unspecified; Z87.440 Personal history of urinary (tract) infections; Z86.73 Personal history of transient ischemic attack (TIA), and cerebral infarction without residual deficits; E11.21 Type 2 diabetes mellitus with diabetic nephropathy; R33.9 Retention of urine, unspecified; F29 Unspecified psychosis not due to a substance or known physiological condition; F01.50 Vascular dementia, unspecified severity, without behavioral disturbance, psychotic disturbance, mood disturbance, and anxiety; F32.9 Major depressive disorder, single episode, unspecified; Z91.81 History of falling
CPT/HCPCS: 36415; 70450-TC; 71045-TC; 72125-TC; 80048-TC; 80076-TC; 80164-TC; 81000-TC; 82570-TC; 82962-TC; 83690-TC; 83735-TC; 84100-TC; 84155-TC; 84300-TC; 85025-TC; 85652-TC; 85730-TC; 86140-TC; 87081-TC; 87086-TC; 90732; 97110-TC; 97116-TC; 97530-TC; A4216; A4606; C9113; J1450; J1815; J2060; J2185; J2543; J3475; J3480; J3490; J7030; J7060; Q9963; Z7610

== ENCOUNTER 2023-05-06 17:13 | Emergency (ER) | payer MEDICARE, OTHER ==
[~2023-05-06] VITALS: Ht 160 cm; Wt 61.2 kg
[~2023-05-06 17:13] MED LIST changes: -ARIP5TAB10 PO; +ASCO500T20 PO; -BUPR300T52 PO; +DIVA125T2 PO; +DIVA250T4 PO; +LACT1CAP72 PO; +RISP1TAB7 PO; +VANC125C11 PO; +risperiDONE-M PO
[2023-05-06] MEDS ORDERED: NITR100C6 PO (18:31)
[2023-05-06] MEDS ORDERED: LORAZEPAM 1 MG TABLET PO ONE (21:30)
[2023-05-06] MEDS ORDERED: MORPHINE SULFATE INJ 2 MG/ML DISP.SYRIN IM ONE (21:30)
[2023-05-06] MEDS ORDERED: LORAZEPAM 0.5 MG TABLET ONE (21:40)
[2023-05-06] MEDS ORDERED: MORPHINE SULFATE INJ 4 MG/ML DISP.SYRIN ONE (21:40)
[2023-05-06 22:25] LABS: APPEARANCE,URINE CLOUDY (CLEAR); BILIRUBIN,URINE NEGATIVE (NEGATIVE); BLOOD, URINE 3+ Ery/uL (NEGATIVE); COLOR,URINE YELLOW (YELLOW); KETONES,URINE NEGATIVE (NEGATIVE); LEUKOCYTE ESTERASE ,URINE 3+ (NEGATIVE); NITRITE, URINE NEGATIVE (NEGATIVE); PROTEIN,URINE 3+ mg/dl (NEGATIVE); UGLUCOSE TRACE mg/dL (NEGATIVE); UROBILINOGEN,URINE 0.2 EU/dL (0.2)
[2023-05-06 22:52] LABS: ADD URINE CULTURE YES; BACTERIA,URINE 3+ /HPF (None Seen); MUCUS,URINE Many /LPF (None Seen); WBC,URINE TOO NUMEROUS TO COUN /HPF (0-3)
[2023-05-06 23:30] VITALS: BP 115/60; TEMP 98.1; O2SAT 97
== END 2023-05-06 22:45 | disposition home or self-care (01) ==
LOC: ER 17:17
DX: N39.0 Urinary tract infection, site not specified (principal); I10 Essential (primary) hypertension; E11.9 Type 2 diabetes mellitus without complications; F32.9 Major depressive disorder, single episode, unspecified; Z88.8 Allergy status to other drugs, medicaments and biological substances; Z79.4 Long term (current) use of insulin; Z79.899 Other long term (current) drug therapy
CPT/HCPCS: 99283; 96372; 87086; 81001; J2270